=== PATIENT | male | born 1960 | race Caucasian/White ===

== ENCOUNTER 2019-04-23 04:49 | Emergency (ER) | payer BC ==
--- OUTSIDE RECORDS SUMMARY | 2019-04-23 04:52 | XMS REPORT | Clinical Summary ---
:1960 [facility] Address [address] [place] [address] Care Team Providers Name Role Phone Js Primary Care Provider Allergies No Known Allergies Medications Medication Sig Dispensed Refills Start Date End Date Status famotidine (PEPCID) 20 Take 20 mg by 0 Active MG tablet mouth 2 (two) times daily. nitroglycerin Put 1 pill 90 tablet 0 10/28/2017 10/28/2018 (NITROSTAT) 0.4 MG SL under tongue tablet every 5min as needed for chest pain.No more than 3 doses in 15min.. Active Problems Problem Noted Date NSTEMI (non-ST elevated myocardial infarction) 10/26/2017 Family History Relation Name Status Comments Father Alive Mother Alive Sister Alive Social History Tobacco Use Types Packs/Day Years Used Date Never Smoker Smokeless Tobacco: Never Used Alcohol Use Drinks/Week oz/Week Comments No Sex Assigned at Date Recorded Not on file Job Start Date Occupation Industry Not on file Not on file Not on file Travel History Travel Start Travel End No recent travel history available. Last Filed Vital Signs Not on file Plan of Treatment Not on file Implants Implanted Type Area Collection Clerk Device Shelf Model / Identifier Expiration Serial / Date Lot Synergy Cardiovascular N/A: HAWTHORNE [id number] 05/14/2018 [id number] / Implanted: Qty: 1 on 10/27/2017 by Osvaldo Cerna MD Heart SCIENTIFIC / [id number] [employer] Cardiovascular N/A: HAWTHORNE [id number] 04/26/2018 [id number] / Implanted: Qty: 1 on 10/27/2017 by Osvaldo Cerna MD Heart [employer]ENT[employer] / [id number] Device Clsr Angio-Seal Vip 6fr [id number] - [id number] Cardiovascular Right: [facility] MARY 08/25/2018 [id number] / Implanted: Qty: 1 on 10/27/2017 by Osvaldo Cerna MD [employer] MED:CARDIAC / SURG [id number] Results Not on fileafter 04/22/2018 Insurance Payer Benefit Plan / Subscriber ID Type Phone Address Group BLUE CROSS/BLUE BCBS PPO POS EPO xxxxxxxxxxxx PPO [phone] [address] [place] [address] Advance Directives For more information, please contact:[address] [phone] Code Status Date Activated Date Inactivated Comments Full Code 10/26/2017 10:52 AM 10/29/2017 12:40 AM This code status was determined by: Patient
--- OUTSIDE RECORDS SUMMARY | 2019-04-23 04:52 | XMS REPORT ---
:1960 [facility] Address [address] [place] [address] Dr. Hendricks [address] [place] [id number] Care Team Providers Name Role Phone OLGA CAZARES Unavailable Unavailable Problems This patient has no known problems. Allergies, Adverse Reactions, Alerts This patient has no known allergies or adverse reactions. Medications This patient has no known medications. Results Test Description Test Time Test Comments Text Results Atomic Results Result Comments BASIC METABOLIC PANEL 2017-10-28 06:47:00 Test Item Value Reference Range Comments SODIUM (BEAKER) (test 139 meq/L 136-145 sntw=115) POTASSIUM (BEAKER) (test 3.9 meq/L 3.5-5.1 kxth=037) CHLORIDE (BEAKER) (test 106 meq/L 98-107 gqgq=204) CO2 (BEAKER) (test 24 meq/L 22-29 uipb=812) BLOOD UREA NITROGEN 14 mg/dL 7-21 (BEAKER) (test zksc=805) CREATININE (BEAKER) (test 0.79 mg/dL 0.57-1.25 oszz=510) GLUCOSE RANDOM (BEAKER) 85 mg/dL 70-105 (test frpt=797) CALCIUM (BEAKER) (test 8.6 mg/dL 8.4-10.2 gwqp=981) EGFR (BEAKER) (test 101 mL/min/1.73 sq m ESTIMATED GFR IS NOT jqpi=0311) ACCURATE CREATININE CLEARANCE IN PREDICTING GLOMERULAR FILTRATION RATE. ESTIMATED GFR IS NOT APPLICABLE FOR DIALYSIS PATIENTS. CBC W/PLT COUNT & AUTO [id number] 05:53:00 Test Item Value Reference Range Comments WHITE BLOOD CELL COUNT (BEAKER) (test ncon=950) 7.4 K/ L 3.5-10.5 RED BLOOD CELL COUNT (BEAKER) (test wrmy=178) 5.00 M/ L 4.63-6.08 HEMOGLOBIN (BEAKER) (test tkri=950) 15.1 GM/DL 13.7-17.5 HEMATOCRIT (BEAKER) (test pqmc=154) 44.5 % 40.1-51.0 MEAN CORPUSCULAR VOLUME (BEAKER) (test geia=895) 89.0 fL 79.0-92.2 MEAN CORPUSCULAR HEMOGLOBIN (BEAKER) (test 30.2 pg 25.7-32.2 cswd=689) MEAN CORPUSCULAR HEMOGLOBIN CONC (BEAKER) (test 33.9 GM/DL 32.3-36.5 fvfy=238) RED CELL DISTRIBUTION WIDTH (BEAKER) (test 12.6 % 11.6-14.4 zrgx=048) PLATELET COUNT (BEAKER) (test yjjc=213) 208 K/CU MM 150-450 MEAN PLATELET VOLUME (BEAKER) (test pxju=903) 10.2 fL 9.4-12.4 NUCLEATED RED BLOOD CELLS (BEAKER) (test 0 /100 WBC 0-0 iysr=237) NEUTROPHILS RELATIVE PERCENT (BEAKER) (test 70 % gako=538) LYMPHOCYTES RELATIVE PERCENT (BEAKER) (test 21 % jwbn=875) MONOCYTES RELATIVE PERCENT (BEAKER) (test 8 % sucr=847) EOSINOPHILS RELATIVE PERCENT (BEAKER) (test 1 % zfns=653) BASOPHILS RELATIVE PERCENT (BEAKER) (test 1 % ywcq=563) NEUTROPHILS ABSOLUTE COUNT (BEAKER) (test 5.23 K/ L 1.78-5.38 adyx=387) LYMPHOCYTES ABSOLUTE COUNT (BEAKER) (test 1.52 K/ L 1.32-3.57 lgzm=500) MONOCYTES ABSOLUTE COUNT (BEAKER) (test 0.57 K/ L 0.30-0.82 eggy=766) EOSINOPHILS ABSOLUTE COUNT (BEAKER) (test 0.05 K/ L 0.04-0.54 vbfg=709) BASOPHILS ABSOLUTE COUNT (BEAKER) (test 0.04 K/ L 0.01-0.08 cbpd=152) IMMATURE GRANULOCYTES-RELATIVE PERCENT (BEAKER) 0 % 0-1 (test nagm=1602) CBC (HEMOGRAM ONLY)2017-10-27 20:50:00 Test Item Value Reference Range Comments WHITE BLOOD CELL COUNT (BEAKER) (test lsyg=654) 6.3 K/ L 3.5-10.5 RED BLOOD CELL COUNT (BEAKER) (test ycst=187) 4.87 M/ L 4.63-6.08 HEMOGLOBIN (BEAKER) (test opfx=403) 14.9 GM/DL 13.7-17.5 HEMATOCRIT (BEAKER) (test pyqd=380) 43.7 % 40.1-51.0 MEAN CORPUSCULAR VOLUME (BEAKER) (test arui=115) 89.7 fL 79.0-92.2 MEAN CORPUSCULAR HEMOGLOBIN (BEAKER) (test 30.6 pg 25.7-32.2 vpzk=479) MEAN CORPUSCULAR HEMOGLOBIN CONC (BEAKER) (test 34.1 GM/DL 32.3-36.5 hmpy=202) RED CELL DISTRIBUTION WIDTH (BEAKER) (test 12.4 % 11.6-14.4 frmq=952) PLATELET COUNT (BEAKER) (test dcea=656) 207 K/CU MM 150-450 MEAN PLATELET VOLUME (BEAKER) (test npnn=892) 9.9 fL 9.4-12.4 NUCLEATED RED BLOOD CELLS (BEAKER) (test 0 /100 WBC 0-0 drwj=034) [id number] 16:29:00 Test Item Value Reference Range Comments ACTIVATED CLOTTING TIME 301 sec TESTED AT [address] (BEAKER) (test nbft=684) [place] [address] [id number] 16:02:00 Test Item Value Reference Range Comments ACTIVATED CLOTTING TIME 263 sec TESTED AT [address] (BEAKER) (test pwqs=354) [place] [address] [id number] 10:05:00 Test Item Value Reference Range Comments PARTIAL THROMBOPLASTIN TIME (BEAKER) (test 64.8 seconds 22.5-36.0 boua=741) BASIC METABOLIC [id number] 04:48:00 Test Item Value Reference Range Comments SODIUM (BEAKER) (test 140 meq/L 136-145 wtka=919) POTASSIUM (BEAKER) (test 4.0 meq/L 3.5-5.1 sdtu=131) CHLORIDE (BEAKER) (test 106 meq/L 98-107 seic=989) CO2 (BEAKER) (test 27 meq/L 22-29 fmvk=462) BLOOD UREA NITROGEN 15 mg/dL 7-21 (BEAKER) (test inrg=435) CREATININE (BEAKER) (test 1.15 mg/dL 0.57-1.25 lipx=224) GLUCOSE RANDOM (BEAKER) 98 mg/dL 70-105 (test cuvp=145) CALCIUM (BEAKER) (test 9.1 mg/dL 8.4-10.2 rncd=134) EGFR (BEAKER) (test 66 mL/min/1.73 sq m ESTIMATED GFR IS NOT roae=7314) ACCURATE CREATININE CLEARANCE IN PREDICTING GLOMERULAR FILTRATION RATE. ESTIMATED GFR IS NOT APPLICABLE FOR DIALYSIS PATIENTS. CBC W/PLT COUNT & AUTO [id number] 04:06:00 Test Item Value Reference Range Comments WHITE BLOOD CELL COUNT (BEAKER) (test tlga=189) 7.0 K/ L 3.5-10.5 RED BLOOD CELL COUNT (BEAKER) (test ysoc=237) 4.86 M/ L 4.63-6.08 HEMOGLOBIN (BEAKER) (test pomg=911) 14.6 GM/DL 13.7-17.5 HEMATOCRIT (BEAKER) (test xixb=163) 44.0 % 40.1-51.0 MEAN CORPUSCULAR VOLUME (BEAKER) (test uxrd=292) 90.5 fL 79.0-92.2 MEAN CORPUSCULAR HEMOGLOBIN (BEAKER) (test 30.0 pg 25.7-32.2 iahd=836) MEAN CORPUSCULAR HEMOGLOBIN CONC (BEAKER) (test 33.2 GM/DL 32.3-36.5 nygg=614) RED CELL DISTRIBUTION WIDTH (BEAKER) (test 12.7 % 11.6-14.4 vqhu=664) PLATELET COUNT (BEAKER) (test calz=946) 209 K/CU MM 150-450 MEAN PLATELET VOLUME (BEAKER) (test tvia=445) 10.1 fL 9.4-12.4 NUCLEATED RED BLOOD CELLS (BEAKER) (test 0 /100 WBC 0-0 almu=833) NEUTROPHILS RELATIVE PERCENT (BEAKER) (test 54 % mspw=035) LYMPHOCYTES RELATIVE PERCENT (BEAKER) (test 35 % lpdo=937) MONOCYTES RELATIVE PERCENT (BEAKER) (test 8 % vgsa=465) EOSINOPHILS RELATIVE PERCENT (BEAKER) (test 1 % uads=584) BASOPHILS RELATIVE PERCENT (BEAKER) (test 1 % datp=339) NEUTROPHILS ABSOLUTE COUNT (BEAKER) (test 3.79 K/ L 1.78-5.38 cvtu=947) LYMPHOCYTES ABSOLUTE COUNT (BEAKER) (test 2.47 K/ L 1.32-3.57 tahk=267) MONOCYTES ABSOLUTE COUNT (BEAKER) (test 0.59 K/ L 0.30-0.82 dhlr=479) EOSINOPHILS ABSOLUTE COUNT (BEAKER) (test 0.07 K/ L 0.04-0.54 ebdm=272) BASOPHILS ABSOLUTE COUNT (BEAKER) (test 0.06 K/ L 0.01-0.08 znwc=814) IMMATURE GRANULOCYTES-RELATIVE PERCENT (BEAKER) 0 % 0-1 (test chiw=8478) [id number] 01:41:00 Test Item Value Reference Range Comments PROTIME (BEAKER) (test niis=731) 14.0 seconds 11.7-14.7 INR (BEAKER) (test gclp=416) 1.1 <=5.9 PARTIAL THROMBOPLASTIN TIME (BEAKER) (test 54.4 seconds 22.5-36.0 zwzr=001) RECOMMENDED COUMADIN/WARFARIN INR THERAPY RANGESSTANDARD DOSE: 2.0 - 3.0 Includes: PROPHYLAXIS forvenous thrombosis, systemic embolization; TREATMENT for venous thrombosis and/or pulmonary embolus.HIGH RISK: Target INR is 2.5-3.5 for patients with mechanical heart valves.TROPONIN [id number] 01:31:00 Test Item Value Reference Range Comments TROPONIN I (BEAKER) (test sdzm=126) 0.29 ng/mL 0.00-0.03 Troponin I (TnI) levels must be interpreted in the context of the presenting symptoms and the clinical findings. Elevated TnI levels indicate myocardial damage, but are not specific for ischemic heart disease. Elevated TnI levels are seen in patients with other cardiac conditions (including myocarditis and congestive heart failure), and slight TnI elevations occur in patients with other conditions, including sepsis, renal failure, acidosis, acute neurological disease, and persistent tachyarrhythmia.TROPONIN [id number] 19:05:00 Test Item Value Reference Range Comments TROPONIN I (BEAKER) (test ckcw=303) 0.40 ng/mL 0.00-0.03 Troponin I (TnI) levels must be interpreted in the context of the presenting symptoms and the clinical findings. Elevated TnI levels indicate myocardial damage, but are not specific for ischemic heart disease. Elevated TnI levels are seen in patients with other cardiac conditions (including myocarditis and congestive heart failure), and slight TnI elevations occur in patients with other conditions, including sepsis, renal failure, acidosis, acute neurological disease, and persistent tachyarrhythmia.[id number] 18:35:00 Test Item Value Reference Range Comments PARTIAL THROMBOPLASTIN TIME (BEAKER) (test 40.3 seconds 22.5-36.0 nmmo=390) TROPONIN [id number] 13:51:00 Test Item Value Reference Range Comments TROPONIN I (BEAKER) (test szxt=233) 0.29 ng/mL 0.00-0.03 Troponin I (TnI) levels must be interpreted in the context of the presenting symptoms and the clinical findings. Elevated TnI levels indicate myocardial damage, but are not specific for ischemic heart disease. Elevated TnI levels are seen in patients with other cardiac conditions (including myocarditis and congestive heart failure), and slight TnI elevations occur in patients with other conditions, including sepsis, renal failure, acidosis, acute neurological disease, and persistent tachyarrhythmia.CREATINE KINASE (CK), TOTAL AND [id number] 12:22:00 Test Item Value Reference Range Comments CREATINE KINASE TOTAL (BEAKER) (test kzug=405) 113 U/L 29-200 CREATINE KINASE-MB (BEAKER) (test nulb=518) 2.9 ng/mL 0.0-6.6 CREATINE KINASE-MB INDEX (BEAKER) (test wcdc=283) 2.6 % CK-MB Reference Range:<6.7 Normal6.7-10.0 Borderline>10.0 AbnormalCOMPREHENSIVE METABOLIC [id number] 12:16:00 Test Item Value Reference Range Comments TOTAL PROTEIN (BEAKER) 7.0 gm/dL 6.0-8.3 Specimen slightly (test rbhb=262) hemolyzed ALBUMIN (BEAKER) (test 3.8 g/dL 3.5-5.0 Specimen slightly idvu=9137) hemolyzed ALKALINE PHOSPHATASE 58 U/L 40-150 (BEAKER) (test bjml=450) BILIRUBIN TOTAL (BEAKER) 0.6 mg/dL 0.2-1.2 Specimen slightly (test yvod=119) hemolyzed SODIUM (BEAKER) (test 140 meq/L 136-145 ailt=693) POTASSIUM (BEAKER) (test 4.4 meq/L 3.5-5.1 Specimen slightly ibzc=601) hemolyzed CHLORIDE (BEAKER) (test 106 meq/L 98-107 hwrb=438) CO2 (BEAKER) (test 27 meq/L 22-29 xbyf=354) BLOOD UREA NITROGEN 12 mg/dL 7-21 (BEAKER) (test fmqg=855) CREATININE (BEAKER) (test 1.00 mg/dL 0.57-1.25 Specimen slightly jooa=185) hemolyzed GLUCOSE RANDOM (BEAKER) 104 mg/dL 70-105 (test bizg=220) CALCIUM (BEAKER) (test 9.7 mg/dL 8.4-10.2 aylr=588) AST (SGOT) (BEAKER) (test 21 U/L 5-34 Specimen slightly gyys=488) hemolyzed ALT (SGPT) (BEAKER) (test 22 U/L 6-55 Specimen slightly ybct=761) hemolyzed EGFR (BEAKER) (test 77 mL/min/1.73 sq m ESTIMATED GFR IS NOT tngs=0418) ACCURATE CREATININE CLEARANCE IN PREDICTING GLOMERULAR FILTRATION RATE. ESTIMATED GFR IS NOT APPLICABLE FOR DIALYSIS PATIENTS. LIPID [id number] 12:16:00 Test Item Value Reference Range Comments TRIGLYCERIDES (BEAKER) (test 103 mg/dL Specimen slightly hemolyzed bllp=249) CHOLESTEROL (BEAKER) (test 243 mg/dL Specimen slightly hemolyzed uurl=545) HDL CHOLESTEROL (BEAKER) (test 36 mg/dL epmc=822) LDL CHOLESTEROL CALCULATED 186 mg/dL (BEAKER) (test tviv=012) Triglyceride Reference Range: Low Risk <150 Borderline 150- 199 High Risk 200-499 Very High Risk >=500Cholesterol Reference Range: Low Risk <200 Borderline 200-239 High Risk > 240HDL Cholesterol Reference Range: Low Risk >=60 High Risk <40LDL Cholesterol Reference Range: Optimal <100 Near Optimal 100-129 Borderline 130-159 High 160-189 Very High >=190PT/[id number] 11:44:00 Test Item Value Reference Range Comments PROTIME (BEAKER) (test fuvb=025) 13.8 seconds 11.7-14.7 INR (BEAKER) (test izfr=922) 1.1 <=5.9 PARTIAL THROMBOPLASTIN TIME (BEAKER) (test 36.6 seconds 22.5-36.0 mdww=421) RECOMMENDED COUMADIN/WARFARIN INR THERAPY RANGESSTANDARD DOSE: 2.0 - 3.0 Includes: PROPHYLAXIS forvenous thrombosis, systemic embolization; TREATMENT for venous thrombosis and/or pulmonary embolus.HIGH RISK: Target INR is 2.5-3.5 for patients with mechanical heart valves.Prior to initiating heparinPrior to initiating heparinCBC W/PLT COUNT & AUTO [id number] 11:37:00 Test Item Value Reference Range Comments WHITE BLOOD CELL COUNT (BEAKER) (test bzwa=640) 5.7 K/ L 3.5-10.5 RED BLOOD CELL COUNT (BEAKER) (test ydft=575) 5.12 M/ L 4.63-6.08 HEMOGLOBIN (BEAKER) (test apot=196) 15.8 GM/DL 13.7-17.5 HEMATOCRIT (BEAKER) (test nuha=307) 46.2 % 40.1-51.0 MEAN CORPUSCULAR VOLUME (BEAKER) (test uamt=330) 90.2 fL 79.0-92.2 MEAN CORPUSCULAR HEMOGLOBIN (BEAKER) (test 30.9 pg 25.7-32.2 wwwv=105) MEAN CORPUSCULAR HEMOGLOBIN CONC (BEAKER) (test 34.2 GM/DL 32.3-36.5 zxnu=580) RED CELL DISTRIBUTION WIDTH (BEAKER) (test 12.7 % 11.6-14.4 tqbr=878) PLATELET COUNT (BEAKER) (test ltvl=845) 232 K/CU MM 150-450 MEAN PLATELET VOLUME (BEAKER) (test swur=920) 9.9 fL 9.4-12.4 NUCLEATED RED BLOOD CELLS (BEAKER) (test 0 /100 WBC 0-0 btjx=052) NEUTROPHILS RELATIVE PERCENT (BEAKER) (test 63 % glyu=241) LYMPHOCYTES RELATIVE PERCENT (BEAKER) (test 30 % tmrv=410) MONOCYTES RELATIVE PERCENT (BEAKER) (test 7 % heds=158) EOSINOPHILS RELATIVE PERCENT (BEAKER) (test 0 % gnrj=682) BASOPHILS RELATIVE PERCENT (BEAKER) (test 1 % ggee=917) NEUTROPHILS ABSOLUTE COUNT (BEAKER) (test 3.59 K/ L 1.78-5.38 zpni=131) LYMPHOCYTES ABSOLUTE COUNT (BEAKER) (test 1.69 K/ L 1.32-3.57 nlde=681) MONOCYTES ABSOLUTE COUNT (BEAKER) (test 0.37 K/ L 0.30-0.82 fsfr=667) EOSINOPHILS ABSOLUTE COUNT (BEAKER) (test 0.02 K/ L 0.04-0.54 lbzd=740) BASOPHILS ABSOLUTE COUNT (BEAKER) (test 0.05 K/ L 0.01-0.08 ctwf=061) IMMATURE GRANULOCYTES-RELATIVE PERCENT (BEAKER) 0 % 0-1 (test wnar=6854) RAD, CHEST, 1 VIEW, NON [id number] 11:23:00Post-intubationReason for exam:-& gt;NSTEMI, chest painShould this be performed at the bedside?->YesFINAL REPORT Chest one view Discussion: Heart, lungs, bones, soft tissues unremarkable. No effusion or pneumothorax. Signed: Angelo Fish Verified Date/Time: 10/26/201711:23:17 Reading Location: [address] Reading Room
[2019-04-23] MEDS ORDERED: FENTANYL CITR 100 MCG/2 ML ONE (05:00)
[2019-04-23] MEDS ORDERED: ONDANSETRON 4 MG/2 ML VIAL ONE (05:01)
[2019-04-23] MEDS ORDERED: KETOROLAC 30 MG/ML INJ ONE (05:01)
[2019-04-23 05:14] LABS: Absolute Lymphocytes (CBC) 3.9 K/uL (0.7-4.9); Basophils % 1.3 % (0-1.3); Hematocrit 46.1 % (39.6-49.0); Lymphocytes % 38.7 % (15.3-44.8); MPV 9.2 fL (7.6-11.3); RBC Red Blood Cell Count 4.99 M/uL (4.33-5.43)
[2019-04-23] MEDS ORDERED: HYDROMORPHONE HCL 1 MG/ML INJ ONE (05:31)
[2019-04-23 05:33] LABS: Albumin 3.8 g/dL (3.4-5.0); Bilirubin Direct 0.1 mg/dL (0-0.2); Bilirubin Total 0.4 mg/dL (0.2-1.0); Potassium 3.8 mmol/L (3.5-5.1); Protein, Total 7.4 g/dL (6.4-8.2)
--- NOTE | 2019-04-23 06:45 | ER ---
Nurse's Notes [facility] Name: Ramirez Gould Jr Age: 58 yrs Sex: Male : 1960 Arrival Date: 04/23/2019 Time: 04:51 Bed 16 Private MD: Diagnosis: Right ureterolithiasis with hydronephrosis Presentation: 04/23 04:53 Presenting complaint: Patient states: that he started to urinate blood last night and fc then at 0430 this am started to have severe right sided flank pain. hx of kidney stones. Transition of care: patient was not received from another setting of care. Onset of symptoms was April 23, 2019 at 04:30. Risk Assessment: Do you want to hurt yourself or someone else? Patient reports no desire to harm self or others. Initial Sepsis Screen: Does the patient meet any 2 criteria? No. Patient's initial sepsis screen is negative. Does the patient have a suspected source of infection? No. Patient's initial sepsis screen is negative. Care prior to arrival: None. 04:53 Method Of Arrival: Wheelchair 04:53 Acuity: JOHN 3 fc Historical: - Allergies: 05:05 No Known Allergies; fc - Home Meds: 05:05 BRILINTA 90 mg oral tab 1 tab 2 times per day [Active]; metoprolol tartrate 25 mg Oral fc tab 0.5 tab 2 times per day [Active]; - PMHx: 05:05 GERD; Hypertension; Myocardial infarction; fc - PSHx: 05:05 Cholecystectomy; Heart stents; fc - Immunization history:: Last tetanus immunization: up to date. - Social history:: Smoking status: Patient/guardian denies using tobacco, Patient uses alcohol, occasionally. - Ebola Screening: : Patient negative for fever greater than or equal to 101.5 degrees Fahrenheit, and additional compatible Ebola Virus Disease symptoms Patient denies exposure to infectious person Patient denies travel to an Ebola-affected area in the 21 days before illness onset. - Family history:: not pertinent. - Hospitalizations: : No recent hospitalization is reported. Screenin:53 Abuse screen: Denies threats or abuse. Nutritional screening: No deficits noted. fc Tuberculosis screening: No symptoms or risk factors identified. Fall Risk None identified. Assessment: 05:00 General: Appears distressed, uncomfortable, Behavior is appropriate for age, agitated, jb4 anxious, restless. Pain: Complains of pain in right low back Pain radiates to groin Pain currently is 10 out of 10 on a pain scale. Quality of pain is described as stabbing, Pain began 1 hour ago. Is continuous. Neuro: Level of Consciousness is awake, alert, obeys commands, Oriented to person, place, time, situation. Cardiovascular: skin warm and diaphoretic . Respiratory: Airway is patent Respiratory effort is even, unlabored, Respiratory pattern is regular, symmetrical. GI: Abdomen is round non-distended, Reports nausea. : Reports discharge, bloody, pain in right flank(s), testicle. EENT: No signs and/or symptoms were reported regarding the EENT system. Derm: Skin is intact, Skin is diaphoretic, Skin is normal, Skin temperature is warm. Musculoskeletal: Circulation, motion, and sensation intact. Range of motion: intact in all extremities. 05:55 Reassessment: Patient appears in no apparent distress at this time. Patient and/or jb4 family updated on plan of care and expected duration. Pain level reassessed. Patient is alert, oriented x 3, equal unlabored respirations, skin warm/dry/pink. Patient states feeling better. 06:29 Reassessment: Patient appears in no apparent distress at this time. Patient and/or jb4 family updated on plan of care and expected duration. Pain level reassessed. Patient is alert, oriented x 3, equal unlabored respirations, skin warm/dry/pink. Patient states feeling better. 07:21 Reassessment: Patient appears in no apparent distress at this time. Patient and/or jb4 family updated on plan of care and expected duration. Pain level reassessed. Patient is alert, oriented x 3, equal unlabored respirations, skin warm/dry/pink. Pt and family verbalized understanding of d/c and follow up instructions. Assisted to car via wheelchair. Vital Signs: 04:53 BP 89 / 56; Pulse 77; Resp 18; Pulse Ox 99% ; Weight 107.95 kg (R); Height 5 ft. 10 in. fc (177.80 cm) (R); Pain 10/10; 05:00 BP 109 / 70; jb4 05:30 BP 120 / 81; Pulse 51; Resp 16; Temp 98.6(O); Pulse Ox 99% on R/A; jb4 06:30 BP 108 / 74; Pulse 61; Resp 16; Pulse Ox 99% on R/A; jb4 07:21 BP 116 / 63; Pulse 61; Resp 16; Pulse Ox 99% on R/A; jb4 04:53 Body Mass Index 34.15 (107.95 kg, 177.80 cm) ED Course: 04:51 Patient arrived in ED. ds1 04:53 Arm band placed on Patient placed in an exam room, on a stretcher. fc 04:53 Patient has correct armband on for positive identification. Placed in gown. Bed in low fc position. Call light in reach. Side rails up X2. Pulse ox on. NIBP on. 04:53 No provider procedures requiring assistance completed. fc 04:56 Miguel Ayers MD is Attending Physician. wa 05:00 Initial lab(s) drawn, by me, sent to lab. Inserted saline lock: 20 gauge in left hand, jb4 using aseptic technique. Blood collected. 05:02 Triage completed. 05:08 Gio Mcnamara RN is Primary Nurse. jb4 05:40 CT completed. Patient tolerated procedure well. Patient moved to CT via stretcher. eh Patient moved back from CT. 05:45 Stone Protocol In Process Unspecified. EDMS 06:43 Sanam Fitch MD is Referral Physician. wa 07:21 IV discontinued, intact, bleeding controlled, No redness/swelling at site. Pressure jb4 dressing applied. Administered Medications: 05:03 Drug: Zofran 4 mg Route: IVP; Site: left hand; jb4 05:30 Follow up: Response: No adverse reaction; Nausea is decreased jb4 05:05 Drug: fentaNYL (PF) 50 mcg Route: IVP; Site: left hand; jb4 05:30 Follow up: Response: No adverse reaction; Pain is unchanged, physician notified; RASS: jb4 Restless (+1) 05:06 Drug: TORadol 30 mg Route: IVP; Site: left hand; jb4 05:30 Follow up: Response: No adverse reaction; Pain is unchanged, physician notified jb4 05:38 Drug: Dilaudid 1 mg {Note: Rass score of 1, b/p 120/81.} Route: IVP; Site: left hand; jb4 06:00 Follow up: Response: No adverse reaction; Pain is decreased; RASS: Alert and Calm (0) jb4 Outcome: 06:44 Discharge ordered by MD. borrego 07:21 Discharged to home via wheelchair, with family. jb4 07:21 Condition: stable 07:21 Discharge instructions given to patient, family, Instructed on discharge instructions, follow up and referral plans. medication usage, Demonstrated understanding of instructions, follow-up care, medications, Prescriptions given X 4. 07:23 Patient left the ED. jb4 Signatures: Dispatcher [employer] EDMS Eric Pradhan Felicia, RN RN Lilly Stewart ds1 Gio Mcnamara RN RN jb4 Miguel Ayers MD MD wa Corrections: (The following items were deleted from the chart) 05:19 05:00 Cardiovascular: Patient's skin is warm and dry. jb4 jb4 05:19 05:00 Derm: Skin is intact, Skin is pink, warm \T\ dry. jb4 [facility] 05:31 04:53 Pulse 77bpm; Resp 18bpm; Pulse Ox 99%; 107.95 kg Reported; Height 5 ft. 10 in. fc Reported; BMI: 34.1; Pain 10/10; fc 06:34 06:34 Response: No adverse reaction; Pain is unchanged, physician notified; RASS: jb4 Restless (+1) jb4
--- NOTE | 2019-04-23 06:45 | EDPHYS ---
Physician Documentation [facility] Name: Ramirez Gould Jr Age: 58 yrs Sex: Male : 1960 Arrival Date: 04/23/2019 Time: 04:51 Bed 16 Private MD: ED Physician Miguel Ayers HPI: 04/23 05:20 This 58 yrs old Male presents to ER via Wheelchair with complaints of wa Possible Kidney Stone. 05:20 The patient complains of pain in the right flank. The pain radiates to the groin. wa Onset: The symptoms/episode began/occurred 2 hour(s) ago. Modifying factors: The symptoms are alleviated by nothing. the symptoms are aggravated by nothing. Associated signs and symptoms: Pertinent positives: hematuria, Pertinent negatives: diarrhea, dizziness, dysuria, fever, vomiting. Severity of pain: At its worst the pain was severe in the emergency department the pain is unchanged. The patient has experienced a previous episode, h/o kidney stones. The patient has not recently seen a physician. states noted blood in his urine several hours ago. now 2 hours of severe R flank pain. Historical: - Allergies: 05:05 No Known Allergies; fc - Home Meds: 05:05 BRILINTA 90 mg oral tab 1 tab 2 times per day [Active]; metoprolol tartrate 25 mg Oral fc tab 0.5 tab 2 times per day [Active]; - PMHx: 05:05 GERD; Hypertension; Myocardial infarction; fc - PSHx: 05:05 Cholecystectomy; Heart stents; fc - Immunization history:: Last tetanus immunization: up to date. - Social history:: Smoking status: Patient/guardian denies using tobacco, Patient uses alcohol, occasionally. - Ebola Screening: : Patient negative for fever greater than or equal to 101.5 degrees Fahrenheit, and additional compatible Ebola Virus Disease symptoms Patient denies exposure to infectious person Patient denies travel to an Ebola-affected area in the 21 days before illness onset. - Family history:: not pertinent. - Hospitalizations: : No recent hospitalization is reported. ROS: 05:22 Constitutional: Negative for fever, chills, and weight loss, Eyes: Negative for injury, wa pain, redness, and discharge, ENT: Negative for injury, pain, and discharge, Neck: Negative for injury, pain, and swelling, Cardiovascular: Negative for chest pain, palpitations, and edema, Respiratory: Negative for shortness of breath, cough, wheezing, and pleuritic chest pain, MS/Extremity: Negative for injury and deformity, Skin: Negative for injury, rash, and discoloration, Neuro: Negative for headache, weakness, numbness, tingling, and seizure, Psych: Negative for depression, anxiety, suicide ideation, homicidal ideation, and hallucinations. 05:22 Abdomen/GI: Positive for abdominal pain, nausea, of the right flank. 05:22 Back: Positive for flank pain, on the right. 05:22 : Positive for hematuria, Negative for urinary frequency. 05:22 All other systems are negative. Exam: 05:23 Head/Face: Normocephalic, atraumatic. Eyes: Pupils equal round and reactive to light, wa extra-ocular motions intact. Lids and lashes normal. Conjunctiva and sclera are non-icteric and not injected. Cornea within normal limits. Periorbital areas with no swelling, redness, or edema. ENT: Nares patent. No nasal discharge, no septal abnormalities noted. Tympanic membranes are normal and external auditory canals are clear. Oropharynx with no redness, swelling, or masses, exudates, or evidence of obstruction, uvula midline. Mucous membranes moist. Neck: Trachea midline, no thyromegaly or masses palpated, and no cervical lymphadenopathy. Supple, full range of motion without nuchal rigidity, or vertebral point tenderness. No Meningismus. Chest/axilla: Normal chest wall appearance and motion. Nontender with no deformity. No lesions are appreciated. Cardiovascular: Regular rate and rhythm with a normal S1 and S2. No gallops, murmurs, or rubs. Normal PMI, no JVD. No pulse deficits. Respiratory: Lungs have equal breath sounds bilaterally, clear to auscultation and percussion. No rales, rhonchi or wheezes noted. No increased work of breathing, no retractions or nasal flaring. Skin: Warm, dry with normal turgor. Normal color with no rashes, no lesions, and no evidence of cellulitis. MS/ Extremity: Pulses equal, no cyanosis. Neurovascular intact. Full, normal range of motion. Neuro: Awake and alert, GCS 15, oriented to person, place, time, and situation. Cranial nerves II-XII grossly intact. Motor strength 5/5 in all extremities. Sensory grossly intact. Cerebellar exam normal. Normal gait. Psych: Awake, alert, with orientation to person, place and time. Behavior, mood, and affect are within normal limits. 05:23 Constitutional: The patient appears in obvious distress, moderately distressed. 05:23 Abdomen/GI: Inspection: abdomen appears normal, Bowel sounds: normal, Palpation: abdomen is soft and non-tender. 05:23 Back: pain, is absent, ROM is normal, CVA tenderness, is absent. Vital Signs: 04:53 BP 89 / 56; Pulse 77; Resp 18; Pulse Ox 99% ; Weight 107.95 kg (R); Height 5 ft. 10 in. fc (177.80 cm) (R); Pain 10/10; 05:00 BP 109 / 70; jb4 05:30 BP 120 / 81; Pulse 51; Resp 16; Temp 98.6(O); Pulse Ox 99% on R/A; jb4 06:30 BP 108 / 74; Pulse 61; Resp 16; Pulse Ox 99% on R/A; jb4 07:21 BP 116 / 63; Pulse 61; Resp 16; Pulse Ox 99% on R/A; jb4 04:53 Body Mass Index 34.15 (107.95 kg, 177.80 cm) fc MDM: 04:56 Patient medically screened. ks 05:24 Differential diagnosis: nephrolithiasis, pyelonephritis, UTI, ruptured AAA, dissecting wa AAA. Data reviewed: vital signs, nurses notes. 06:41 Test interpretation: by ED physician or midlevel provider: labs wnl. UA pending. CT ks abd/pelvis noted for 2 mm R distal ureter stone with assoc hydro. Response to treatment: the patient's symptoms have markedly improved after treatment. ED course: pain-free at 0640 hrs. will await UA and dispo accordingly. 06:48 Test interpretation: by ED physician or midlevel provider: UA noted for blood and ks ketones. nml nitrite and LE. 04/23 05:00 Order name: Basic Metabolic Panel; Complete Time: 06:36 04/23 05:00 Order name: CBC with Diff; Complete Time: 05:25 04/23 05:00 Order name: Hepatic Function; Complete Time: 06:37 04/23 05:00 Order name: Lipase; Complete Time: 06:37 ks 04/23 05:00 Order name: Urine Microscopic Only ks 04/23 06:56 Order name: Urine Dipstick--Ancillary (enter results) 04/23 05:00 Order name: IV Saline Lock; Complete Time: 05:16 ks 04/23 05:00 Order name: Labs collected and sent; Complete Time: 05:26 ks 04/23 05:26 Order name: Stone Protocol EDTX 04/23 05:00 Order name: Urine Dipstick-Ancillary (obtain specimen); Complete Time: 06:48 ks Administered Medications: 05:03 Drug: Zofran 4 mg Route: IVP; Site: left hand; 4 05:30 Follow up: Response: No adverse reaction; Nausea is decreased jb4 05:05 Drug: fentaNYL (PF) 50 mcg Route: IVP; Site: left hand; jb4 05:30 Follow up: Response: No adverse reaction; Pain is unchanged, physician notified; RASS: banner Restless (+1) 05:06 Drug: TORadol 30 mg Route: IVP; Site: left hand; 4 05:30 Follow up: Response: No adverse reaction; Pain is unchanged, physician notified banner 05:38 Drug: Dilaudid 1 mg {Note: Rass score of 1, b/p 120/81.} Route: IVP; Site: left hand; banner 06:00 Follow up: Response: No adverse reaction; Pain is decreased; RASS: Alert and Calm (0) banner Disposition: 04/23/19 06:44 Discharged to Home. Impression: Right ureterolithiasis with hydronephrosis. - Condition is Stable. - Discharge Instructions: Kidney Stones, [id number]. - Prescriptions for Zofran 4 mg Oral Tablet - take 1 tablet by ORAL route every 12 hours As needed; 20 tablet. [place] 5- 325 mg Oral Tablet - take 1 tablet by ORAL route every 6 hours As needed; 20 tablet. Flomax 0.4 mg Oral Capsule, Sust. Release 24 hr - take 1 capsule by ORAL route once daily for 5 days 1/2 hour following the same meal each day; 5 capsule. - Medication Reconciliation Form, Thank You Letter, Antibiotic Education, Prescription Opioid Use, Work release form form. - Follow up: Sanam Fitch MD; When: 2 - 3 days; Reason: Re-evaluation by your physician. - Problem is new. - Symptoms have improved. - Notes: take medication as prescribed. do not stand too quickly when taking flomax as it could make you collapse down.Follow up with the urologist for any continued concerns such as severe pain Signatures: Dispatcher [employer] [facility] Heaven Porter RN RN Goi Mcnamara RN RN jb4 Miguel Ayers MD MD wa Corrections: (The following items were deleted from the chart) 05:25 05:01 Abdomen Pelvis Wo Con+CT.RAD.BRZ ordered. EDTX EDMS 07:23 06:44 04/23/2019 06:44 Discharged to Home. Impression: Right ureterolithiasis with jb4 hydronephrosis. Condition is Stable. Forms are Medication Reconciliation Form, Thank You Letter, Antibiotic Education, Prescription Opioid Use. Follow up: Sanam Fitch; When: 2 - 3 days; Reason: Re-evaluation by your physician. Problem is new. Symptoms have improved. wa
[2019-04-23 07:37] LABS: Urine Bacteria <20 /HPF (NONE SEEN); Urine RBC 20-50 /HPF (NONE SEEN)
[2019-04-23 07:38] LABS: Urine Amorphous Sediment 1+ /HPF (NONE SEEN); Urine Culture Reflex Order NOT NEEDED
[2019-04-23 09:35] LABS: Urine Blood 2+ (NEG); Urine Glucose NEGATIVE (NEG); Urine Protein NEGATIVE (NEG); Urine Specific Gravity 1.025 (1.005-1.030)
--- NOTE | 2019-04-23 10:29 | RAD REPORT ---
EXAM DESCRIPTION: Stone Protocol CLINICAL HISTORY: R flank pain COMPARISON: None. TECHNIQUE: CT ABDOMEN PELVIS WITHOUT IV CONTRAST on 04/23/2019 5:01 AM CDT This exam was performed according to our departmental dose-optimization program, which includes autom ated exposure control, adjustment of the mA and/or kV according to patient size and/or use of iterati ve reconstruction technique. FINDINGS: Lower lungs are clear. Abdomen: There is a small cyst in the right lobe of the liver. There is no biliary dilatation. Cholec ystectomy was performed. The pancreas and spleen are normal in appearance. There is a 2 mm mid pole l eft renal calculus. There is a 2 mm mid pole right renal calculus. There is mild right hydronephrosis secondary to a 2 mm distal right ureteral calculus. Abdominal aorta is normal in course and caliber without aneurysm. There is no free air. There is no r etroperitoneal adenopathy. Pelvis: There is no bowel obstruction. Urinary bladder is unremarkable. There is no free fluid. Appen [place] is normal. Skeleton: There are no acute osseous findings. No suspicious bony lesions. IMPRESSION: Mild bilateral nephrolithiasis with a mildly obstructing two distal right ureteral calcu gennaro. Electronically signed by: Kade Leonard MD 04/23/2019 5:53 AM CDT Due to temporary technical issues with the PACS/Fluency reporting system, reports are being signed by the in house radiologist as a courtesy to ensure prompt reporting. The interpreting radiologist is f ully responsible for the content of the report.
== END 2019-04-23 07:23 | disposition home or self-care (01) ==
LOC: ER 04:49
DX: N13.2 Hydronephrosis with renal and ureteral calculous obstruction (principal); I10 Essential (primary) hypertension; I25.2 Old myocardial infarction
CPT/HCPCS: 85025; 80048; 36415; 80076; 83690; 76377; 74176; 96375; 96374; 99284; J3010; J1170; J2405; 81003; 81015

== ENCOUNTER 2019-04-26 08:56 | Emergency (ER) | payer BC ==
--- OUTSIDE RECORDS SUMMARY | 2019-04-26 09:00 | XMS REPORT | Clinical Summary ---
:[address] [facility] Address [address] [place] [address] Care Team Providers Name Role Phone Js [...] Not on file Implants Implanted Type Area Small Products Ii Assembler Device Shelf Model / Identifier Expiration Serial / Date Lot Synergy Cardiovascular N/A: [place] [id number] 05/14/2018 [id number] / Implanted: Qty: 1 on 10/27/2017 by Osvaldo Cerna MD Heart [employer] / [id number] [employer] Cardiovascular N/A: [place] [id number] 04/26/2018 [id number] / Implanted: Qty: 1 on 10/27/2017 by Osvaldo Cerna MD [employer] / [id number] Device Clsr Angio-Seal Vip 6fr [id number] - [id number] Cardiovascular Right: [facility] [place] 08/25/2018 [id number] / Implanted: Qty: 1 on 10/27/2017 by Osvaldo Cerna MD Groin MED:CARDIAC / SURG [id number] Results Not on fileafter 04/25/2018 Insurance Payer Benefit Plan / Subscriber ID Type Phone Address Group BLUE CROSS/BLUE BCBS PPO POS EPO xxxxxxxxxxxx PPO [phone] [address] [place] [address] Advance Directives For more information, please contact:[address] [phone] Code Status Date Activated Date Inactivated Comments Full Code 10/26/2017 10:52 AM 10/29/2017 12:40 AM This code status was determined by: Patient
--- OUTSIDE RECORDS SUMMARY | 2019-04-26 09:00 | XMS REPORT ---
:1960 Author [facility] Address [address] [place] [address] Dr. Hendricks [address] [place] [id number] Care Team Providers Name Role Phone OLGA [...] Comments SODIUM (BEAKER) (test 139 meq/L 136-145 sbuv=187) POTASSIUM (BEAKER) (test 3.9 meq/L 3.5-5.1 knip=205) CHLORIDE (BEAKER) (test 106 meq/L 98-107 wenc=004) CO2 (BEAKER) (test 24 meq/L 22-29 lbgr=030) BLOOD UREA NITROGEN 14 mg/dL 7-21 (BEAKER) (test aztm=443) CREATININE (BEAKER) (test 0.79 mg/dL 0.57-1.25 szam=901) GLUCOSE RANDOM (BEAKER) 85 mg/dL 70-105 (test afdy=860) CALCIUM (BEAKER) (test 8.6 mg/dL 8.4-10.2 fdvt=426) EGFR (BEAKER) (test 101 mL/min/1.73 sq m ESTIMATED GFR IS NOT pmaf=7663) ACCURATE CREATININE CLEARANCE IN PREDICTING GLOMERULAR FILTRATION RATE. ESTIMATED GFR IS NOT APPLICABLE FOR DIALYSIS PATIENTS. CBC W/PLT COUNT & AUTO [id number] 05:53:00 Test Item Value Reference Range Comments WHITE BLOOD CELL COUNT (BEAKER) (test tfvd=505) 7.4 K/ L 3.5-10.5 RED BLOOD CELL COUNT (BEAKER) (test npuz=177) 5.00 M/ L 4.63-6.08 HEMOGLOBIN (BEAKER) (test poij=929) 15.1 GM/DL 13.7-17.5 HEMATOCRIT (BEAKER) (test frzj=238) 44.5 % 40.1-51.0 MEAN CORPUSCULAR VOLUME (BEAKER) (test ainw=028) 89.0 fL 79.0-92.2 MEAN CORPUSCULAR HEMOGLOBIN (BEAKER) (test 30.2 pg 25.7-32.2 fztx=017) MEAN CORPUSCULAR HEMOGLOBIN CONC (BEAKER) (test 33.9 GM/DL 32.3-36.5 ljlb=862) RED CELL DISTRIBUTION WIDTH (BEAKER) (test 12.6 % 11.6-14.4 lcgk=583) PLATELET COUNT (BEAKER) (test xxyy=731) 208 K/CU MM 150-450 MEAN PLATELET VOLUME (BEAKER) (test uqzi=658) 10.2 fL 9.4-12.4 NUCLEATED RED BLOOD CELLS (BEAKER) (test 0 /100 WBC 0-0 olnm=137) NEUTROPHILS RELATIVE PERCENT (BEAKER) (test 70 % iury=852) LYMPHOCYTES RELATIVE PERCENT (BEAKER) (test 21 % iwqa=869) MONOCYTES RELATIVE PERCENT (BEAKER) (test 8 % hiuk=552) EOSINOPHILS RELATIVE PERCENT (BEAKER) (test 1 % lpim=982) BASOPHILS RELATIVE PERCENT (BEAKER) (test 1 % dwwf=008) NEUTROPHILS ABSOLUTE COUNT (BEAKER) (test 5.23 K/ L 1.78-5.38 xnba=586) LYMPHOCYTES ABSOLUTE COUNT (BEAKER) (test 1.52 K/ L 1.32-3.57 siwh=091) MONOCYTES ABSOLUTE COUNT (BEAKER) (test 0.57 K/ L 0.30-0.82 amqf=732) EOSINOPHILS ABSOLUTE COUNT (BEAKER) (test 0.05 K/ L 0.04-0.54 hzvn=644) BASOPHILS ABSOLUTE COUNT (BEAKER) (test 0.04 K/ L 0.01-0.08 qram=737) IMMATURE GRANULOCYTES-RELATIVE PERCENT (BEAKER) 0 % 0-1 (test ttnd=0487) CBC (HEMOGRAM ONLY)2017-10-27 20:50:00 Test Item Value Reference Range Comments WHITE BLOOD CELL COUNT (BEAKER) (test zoke=851) 6.3 K/ L 3.5-10.5 RED BLOOD CELL COUNT (BEAKER) (test ekdp=803) 4.87 M/ L 4.63-6.08 HEMOGLOBIN (BEAKER) (test vtiv=140) 14.9 GM/DL 13.7-17.5 HEMATOCRIT (BEAKER) (test hjqw=174) 43.7 % 40.1-51.0 MEAN CORPUSCULAR VOLUME (BEAKER) (test gild=071) 89.7 fL 79.0-92.2 MEAN CORPUSCULAR HEMOGLOBIN (BEAKER) (test 30.6 pg 25.7-32.2 ywmb=010) MEAN CORPUSCULAR HEMOGLOBIN CONC (BEAKER) (test 34.1 GM/DL 32.3-36.5 luhq=481) RED CELL DISTRIBUTION WIDTH (BEAKER) (test 12.4 % 11.6-14.4 jlml=215) PLATELET COUNT (BEAKER) (test pbzm=927) 207 K/CU MM 150-450 MEAN PLATELET VOLUME (BEAKER) (test tlbf=657) 9.9 fL 9.4-12.4 NUCLEATED RED BLOOD CELLS (BEAKER) (test 0 /100 WBC 0-0 xdgj=181) [id number] 16:29:00 Test Item Value Reference Range Comments ACTIVATED CLOTTING TIME 301 sec TESTED AT [address] (BEAKER) (test amin=453) [place] [address] [id number] 16:02:00 Test Item Value Reference Range Comments ACTIVATED CLOTTING TIME 263 sec TESTED AT [address] (BEAKER) (test qcct=689) [place] [address] [id number] 10:05:00 Test Item Value Reference Range Comments PARTIAL THROMBOPLASTIN TIME (BEAKER) (test 64.8 seconds 22.5-36.0 tlpl=839) BASIC METABOLIC [id number] 04:48:00 Test Item Value Reference Range Comments SODIUM (BEAKER) (test 140 meq/L 136-145 pgfn=704) POTASSIUM (BEAKER) (test 4.0 meq/L 3.5-5.1 uwcb=973) CHLORIDE (BEAKER) (test 106 meq/L 98-107 xruf=274) CO2 (BEAKER) (test 27 meq/L 22-29 zusa=157) BLOOD UREA NITROGEN 15 mg/dL 7-21 (BEAKER) (test rdxj=885) CREATININE (BEAKER) (test 1.15 mg/dL 0.57-1.25 qydg=074) GLUCOSE RANDOM (BEAKER) 98 mg/dL 70-105 (test pxch=698) CALCIUM (BEAKER) (test 9.1 mg/dL 8.4-10.2 daob=570) EGFR (BEAKER) (test 66 mL/min/1.73 sq m ESTIMATED GFR IS NOT iijb=2262) ACCURATE CREATININE CLEARANCE IN PREDICTING GLOMERULAR FILTRATION RATE. ESTIMATED GFR IS NOT APPLICABLE FOR DIALYSIS PATIENTS. CBC W/PLT COUNT & AUTO [id number] 04:06:00 Test Item Value Reference Range Comments WHITE BLOOD CELL COUNT (BEAKER) (test jpri=194) 7.0 K/ L 3.5-10.5 RED BLOOD CELL COUNT (BEAKER) (test rrqd=155) 4.86 M/ L 4.63-6.08 HEMOGLOBIN (BEAKER) (test dyus=849) 14.6 GM/DL 13.7-17.5 HEMATOCRIT (BEAKER) (test himn=832) 44.0 % 40.1-51.0 MEAN CORPUSCULAR VOLUME (BEAKER) (test agdn=545) 90.5 fL 79.0-92.2 MEAN CORPUSCULAR HEMOGLOBIN (BEAKER) (test 30.0 pg 25.7-32.2 zqjm=773) MEAN CORPUSCULAR HEMOGLOBIN CONC (BEAKER) (test 33.2 GM/DL 32.3-36.5 oshq=367) RED CELL DISTRIBUTION WIDTH (BEAKER) (test 12.7 % 11.6-14.4 infn=262) PLATELET COUNT (BEAKER) (test lhhy=238) 209 K/CU MM 150-450 MEAN PLATELET VOLUME (BEAKER) (test vxmu=156) 10.1 fL 9.4-12.4 NUCLEATED RED BLOOD CELLS (BEAKER) (test 0 /100 WBC 0-0 fcwx=865) NEUTROPHILS RELATIVE PERCENT (BEAKER) (test 54 % dtjq=620) LYMPHOCYTES RELATIVE PERCENT (BEAKER) (test 35 % yknf=405) MONOCYTES RELATIVE PERCENT (BEAKER) (test 8 % wawo=370) EOSINOPHILS RELATIVE PERCENT (BEAKER) (test 1 % rznr=223) BASOPHILS RELATIVE PERCENT (BEAKER) (test 1 % sfwo=325) NEUTROPHILS ABSOLUTE COUNT (BEAKER) (test 3.79 K/ L 1.78-5.38 jodm=755) LYMPHOCYTES ABSOLUTE COUNT (BEAKER) (test 2.47 K/ L 1.32-3.57 dlst=178) MONOCYTES ABSOLUTE COUNT (BEAKER) (test 0.59 K/ L 0.30-0.82 hlbm=244) EOSINOPHILS ABSOLUTE COUNT (BEAKER) (test 0.07 K/ L 0.04-0.54 lucd=078) BASOPHILS ABSOLUTE COUNT (BEAKER) (test 0.06 K/ L 0.01-0.08 hiex=641) IMMATURE GRANULOCYTES-RELATIVE PERCENT (BEAKER) 0 % 0-1 (test ofye=6962) [id number] 01:41:00 Test Item Value Reference Range Comments PROTIME (BEAKER) (test hgig=179) 14.0 seconds 11.7-14.7 INR (BEAKER) (test zqfl=017) 1.1 <=5.9 PARTIAL THROMBOPLASTIN TIME (BEAKER) (test 54.4 seconds 22.5-36.0 iykd=615) RECOMMENDED COUMADIN/WARFARIN INR THERAPY RANGESSTANDARD DOSE: 2.0 - 3.0 Includes: PROPHYLAXIS forvenous thrombosis, systemic embolization; TREATMENT for venous thrombosis and/or pulmonary embolus.HIGH RISK: Target INR is 2.5-3.5 for patients with mechanical heart valves.TROPONIN [id number] 01:31:00 Test Item Value Reference Range Comments TROPONIN I (BEAKER) (test gmgk=786) 0.29 ng/mL 0.00-0.03 Troponin I (TnI) levels [...] acidosis, acute neurological disease, and persistent tachyarrhythmia.TROPONIN [id number] 19:05:00 Test Item Value Reference Range Comments TROPONIN I (BEAKER) (test juav=421) 0.40 ng/mL 0.00-0.03 Troponin I (TnI) levels [...] failure, acidosis, acute neurological disease, and persistent tachyarrhythmia.[id number] 18:35:00 Test Item Value Reference Range Comments PARTIAL THROMBOPLASTIN TIME (BEAKER) (test 40.3 seconds 22.5-36.0 kezc=678) TROPONIN [id number] 13:51:00 Test Item Value Reference Range Comments TROPONIN I (BEAKER) (test fvyo=757) 0.29 ng/mL 0.00-0.03 Troponin I (TnI) levels [...] and persistent tachyarrhythmia.CREATINE KINASE (CK), TOTAL AND [id number] 12:22:00 Test Item Value Reference Range Comments CREATINE KINASE TOTAL (BEAKER) (test aclj=804) 113 U/L 29-200 CREATINE KINASE-MB (BEAKER) (test bezd=580) 2.9 ng/mL 0.0-6.6 CREATINE KINASE-MB INDEX (BEAKER) (test nrqj=238) 2.6 % CK-MB Reference Range:<6.7 Normal6.7-10.0 Borderline>10.0 AbnormalCOMPREHENSIVE METABOLIC [id number] 12:16:00 Test Item Value Reference Range Comments TOTAL PROTEIN (BEAKER) 7.0 gm/dL 6.0-8.3 Specimen slightly (test tdwd=555) hemolyzed ALBUMIN (BEAKER) (test 3.8 g/dL 3.5-5.0 Specimen slightly gawb=1329) hemolyzed ALKALINE PHOSPHATASE 58 U/L 40-150 (BEAKER) (test iint=454) BILIRUBIN TOTAL (BEAKER) 0.6 mg/dL 0.2-1.2 Specimen slightly (test yryj=130) hemolyzed SODIUM (BEAKER) (test 140 meq/L 136-145 ghus=573) POTASSIUM (BEAKER) (test 4.4 meq/L 3.5-5.1 Specimen slightly yctj=544) hemolyzed CHLORIDE (BEAKER) (test 106 meq/L 98-107 ifvx=564) CO2 (BEAKER) (test 27 meq/L 22-29 jpbs=071) BLOOD UREA NITROGEN 12 mg/dL 7-21 (BEAKER) (test ggam=830) CREATININE (BEAKER) (test 1.00 mg/dL 0.57-1.25 Specimen slightly adkk=383) hemolyzed GLUCOSE RANDOM (BEAKER) 104 mg/dL 70-105 (test czzq=023) CALCIUM (BEAKER) (test 9.7 mg/dL 8.4-10.2 vjxq=231) AST (SGOT) (BEAKER) (test 21 U/L 5-34 Specimen slightly tgty=713) hemolyzed ALT (SGPT) (BEAKER) (test 22 U/L 6-55 Specimen slightly qiag=020) hemolyzed EGFR (BEAKER) (test 77 mL/min/1.73 sq m ESTIMATED GFR IS NOT lanb=4586) ACCURATE CREATININE CLEARANCE IN PREDICTING GLOMERULAR FILTRATION RATE. ESTIMATED GFR IS NOT APPLICABLE FOR DIALYSIS PATIENTS. LIPID [id number] 12:16:00 Test Item Value Reference Range Comments TRIGLYCERIDES (BEAKER) (test 103 mg/dL Specimen slightly hemolyzed mjmg=128) CHOLESTEROL (BEAKER) (test 243 mg/dL Specimen slightly hemolyzed cmjh=916) HDL CHOLESTEROL (BEAKER) (test 36 mg/dL auva=968) LDL CHOLESTEROL CALCULATED 186 mg/dL (BEAKER) (test ibdc=647) Triglyceride Reference Range: Low Risk <150 Borderline 150- 199 High Risk 200-499 Very High Risk >=500Cholesterol Reference Range: Low Risk <200 Borderline 200-239 High Risk > 240HDL Cholesterol Reference Range: Low Risk >=60 High Risk <40LDL Cholesterol Reference Range: Optimal <100 Near Optimal 100-129 Borderline 130-159 High 160-189 Very High >=190PT/[id number] 11:44:00 Test Item Value Reference Range Comments PROTIME (BEAKER) (test ouwt=961) 13.8 seconds 11.7-14.7 INR (BEAKER) (test bugp=294) 1.1 <=5.9 PARTIAL THROMBOPLASTIN TIME (BEAKER) (test 36.6 seconds 22.5-36.0 azbe=286) RECOMMENDED COUMADIN/WARFARIN INR THERAPY RANGESSTANDARD DOSE: 2.0 - 3.0 Includes: PROPHYLAXIS forvenous thrombosis, systemic embolization; TREATMENT for venous thrombosis and/or pulmonary embolus.HIGH RISK: Target INR is 2.5-3.5 for patients with mechanical heart valves.Prior to initiating heparinPrior to initiating heparinCBC W/PLT COUNT & AUTO [id number] 11:37:00 Test Item Value Reference Range Comments WHITE BLOOD CELL COUNT (BEAKER) (test bwqs=682) 5.7 K/ L 3.5-10.5 RED BLOOD CELL COUNT (BEAKER) (test mvys=480) 5.12 M/ L 4.63-6.08 HEMOGLOBIN (BEAKER) (test hpzu=209) 15.8 GM/DL 13.7-17.5 HEMATOCRIT (BEAKER) (test tmoy=827) 46.2 % 40.1-51.0 MEAN CORPUSCULAR VOLUME (BEAKER) (test qwgb=455) 90.2 fL 79.0-92.2 MEAN CORPUSCULAR HEMOGLOBIN (BEAKER) (test 30.9 pg 25.7-32.2 jtrl=557) MEAN CORPUSCULAR HEMOGLOBIN CONC (BEAKER) (test 34.2 GM/DL 32.3-36.5 ytak=691) RED CELL DISTRIBUTION WIDTH (BEAKER) (test 12.7 % 11.6-14.4 fvzk=270) PLATELET COUNT (BEAKER) (test ooyi=691) 232 K/CU MM 150-450 MEAN PLATELET VOLUME (BEAKER) (test xldk=423) 9.9 fL 9.4-12.4 NUCLEATED RED BLOOD CELLS (BEAKER) (test 0 /100 WBC 0-0 yxpl=206) NEUTROPHILS RELATIVE PERCENT (BEAKER) (test 63 % kceq=095) LYMPHOCYTES RELATIVE PERCENT (BEAKER) (test 30 % zetv=050) MONOCYTES RELATIVE PERCENT (BEAKER) (test 7 % jfyr=586) EOSINOPHILS RELATIVE PERCENT (BEAKER) (test 0 % gbkr=723) BASOPHILS RELATIVE PERCENT (BEAKER) (test 1 % hvhr=034) NEUTROPHILS ABSOLUTE COUNT (BEAKER) (test 3.59 K/ L 1.78-5.38 ibrv=277) LYMPHOCYTES ABSOLUTE COUNT (BEAKER) (test 1.69 K/ L 1.32-3.57 dsfl=416) MONOCYTES ABSOLUTE COUNT (BEAKER) (test 0.37 K/ L 0.30-0.82 xzka=372) EOSINOPHILS ABSOLUTE COUNT (BEAKER) (test 0.02 K/ L 0.04-0.54 ypfx=591) BASOPHILS ABSOLUTE COUNT (BEAKER) (test 0.05 K/ L 0.01-0.08 jegs=147) IMMATURE GRANULOCYTES-RELATIVE PERCENT (BEAKER) 0 % 0-1 (test bixw=[id number]) RAD, CHEST, 1 VIEW, NON [id number] 11:23:00Post-intubationReason for exam:-& gt;NSTEMI, chest painShould this be performed at the bedside?->YesFINAL REPORT Chest one view Discussion: Heart, lungs, bones, soft tissues unremarkable. No effusion or pneumothorax. Signed: Angelo Fish Verified Date/Time: 10/26/201711:23:17 Reading Location: [address] Reading Room
[2019-04-26] MEDS ORDERED: MORPHINE 4 MG/ML SYR ONE (09:36)
[2019-04-26] MEDS ORDERED: ONDANSETRON 4 MG/2 ML VIAL ONE (09:37)
[2019-04-26] MEDS ORDERED: KETOROLAC 30 MG/ML INJ ONE (09:37)
[2019-04-26] MEDS ORDERED: MAGNESIUM SULFATE 1 gm IVPB 1 GM/100 ML BAG IV ONE (09:37)
[2019-04-26 09:58] LABS: Potassium 4.3 mmol/L (3.5-5.1)
--- NOTE | 2019-04-26 10:39 | RAD REPORT ---
EXAM DESCRIPTION: CT - Stone Protocol - 04/26/2019 9:51 am CLINICAL HISTORY: Abdominal pain. Right flank pain COMPARISON: 04/23/2019 TECHNIQUE: Computed axial tomography of the abdomen pelvis was obtained without oral or IV contrast. Lack of IV and oral contrast limits evaluation of solid organs, bowel, and vessels. Coronal reformat donald images were obtained and reviewed. All CT scans are performed using dose optimization technique as appropriate and may include automated exposure control or mA/KV adjustment according to patient size. FINDINGS: Small bilateral renal calculi. Mild right hydronephrosis. A 2.5 millimeter calculus is pre sent near the right ureteral vesicle junction. It has migrated 1 centimeter distally since the prior exam. 28 millimeter low-density mass dome of the liver unchanged, Spleen, pancreas and adrenals appear grossly normal There is no evidence of diverticulitis. The appendix appears normal A small umbilical hernia. Mild enlargement of the prostate gland Rectal tubing present IMPRESSION: 2.5 millimeter calculus near the right ureterovesical junction resulting in mild right h ydronephrosis 28 low-density hepatic mass within the liver most likely representing cyst. Ultrasound in 3 months re commended for confirmation
--- NOTE | 2019-04-26 11:11 | ER ---
Nurse's Notes [facility] Name: Ramirez Gould Jr Age: 58 yrs Sex: Male : 1960 Arrival Date: 04/26/2019 Time: 08:58 Bed 17 Private MD: out of town, doctor Diagnosis: Calculus of kidney and ureter Presentation: 04/26 09:03 Presenting complaint: Seen in ED 3 days ago for kidney stone, reports worsening right hb flank pain 9/10. Transition of care: patient was not received from another setting of care. Onset of symptoms was April 26, 2019. Risk Assessment: Do you want to hurt yourself or someone else? Patient reports no desire to harm self or others. Care prior to arrival: None. 09:03 Method Of Arrival: Ambulatory hb 09:03 Acuity: JOHN 3 hb 09:30 Initial Sepsis Screen: Does the patient meet any 2 criteria? No. Patient's initial aa5 sepsis screen is negative. Does the patient have a suspected source of infection? No. Patient's initial sepsis screen is negative. Historical: - Allergies: 09:05 No Known Allergies; hb - Home Meds: 09:05 BRILINTA 90 mg Oral tab 1 tab 2 times per day [Active]; metoprolol tartrate 25 mg Oral hb tab 0.5 tab 2 times per day [Active]; - PMHx: 09:05 GERD; Hypertension; Myocardial infarction; hb - PSHx: 09:05 Cholecystectomy; Heart stents; hb - Immunization history:: Adult Immunizations up to date. - Social history:: Smoking status: Patient/guardian denies using tobacco. - Ebola Screening: : No symptoms or risks identified at this time. Screenin:00 Abuse screen: Denies threats or abuse. Nutritional screening: No deficits noted. aa5 Tuberculosis screening: No symptoms or risk factors identified. Fall Risk None identified. Assessment: 09:30 General: Appears uncomfortable, Behavior is cooperative, restless. Pain: Pain: aa5 Complains of pain in right flank Pain radiates to right groin Pain currently is 9 out of 10 on a pain scale. Quality of pain is described as sharp, shooting, Pain began 3 days ago but got worse this morning Is continuous. Neuro: Level of Consciousness is awake, alert, obeys commands, Oriented to person, place, time, situation. Cardiovascular: Heart tones S1 S2 present Rhythm is regular. Respiratory: Airway is patent Respiratory effort is even, unlabored, Respiratory pattern is regular, symmetrical. GI: Abdomen is round non-distended, Bowel sounds present X 4 quads. Abd is soft and non tender X 4 quads. Patient currently denies nausea, vomiting. : Denies inability to void, denies blood in urine. EENT: No signs and/or symptoms were reported regarding the EENT system. Derm: Skin is pink, warm \T\ dry. Musculoskeletal: Range of motion: intact in all extremities. 10:00 Reassessment: Patient is alert, oriented x 3, equal unlabored respirations, skin aa5 warm/dry/pink. Patient states feeling better. Patient states symptoms have improved. Pt back from CT via stretcher. . Pain: Denies pain. 10:30 Reassessment: Patient is alert, oriented x 3, equal unlabored respirations, skin aa5 warm/dry/pink. Patient denies pain at this time. Urine specimen collected, urine is clear yellow . 11:00 Reassessment: Patient is alert, oriented x 3, equal unlabored respirations, skin aa5 warm/dry/pink. Patient denies pain at this time. Awaiting disposition, pt notified of wait time . 11:40 Reassessment: Patient is alert, oriented x 3, equal unlabored respirations, skin aa5 warm/dry/pink. Patient denies pain at this time. Vital Signs: 09:04 BP 121 / 73; Pulse 66; Resp 16; Temp 97.8; Pulse Ox 100% on R/A; Weight 106.59 kg; hb Height 5 ft. 10 in. (177.80 cm); Pain 9/10; 10:00 BP 135 / 88; Pulse 68; Resp 16 S; Pulse Ox 95% on R/A; Pain 0/10; aa5 11:00 BP 138 / 84; Pulse 67; Resp 18 S; Pulse Ox 98% on R/A; Pain 0/10; aa5 09:04 Body Mass Index 33.72 (106.59 kg, 177.80 cm) hb ED Course: 08:58 Patient arrived in ED. dl4 08:59 out of town, doctor is Private Physician. dl4 09:01 Tosha Oakley [facility]C [facility]. kb 09:01 Spike Santiago MD is Attending Physician. kb 09:04 Triage completed. hb 09:04 Arm band placed on. hb 09:13 Bisi Parks, RN is Primary Nurse. aa5 09:30 Patient has correct armband on for positive identification. Bed in low position. Call aa5 light in reach. Side rails up X2. Adult w/ patient. 09:34 Initial lab(s) drawn, by nd, sent to lab. Inserted saline lock: 20 gauge in left aa5 antecubital area, using aseptic technique. Blood collected. 09:52 CT Stone Protocol In Process Unspecified. EDMS 09:57 CT completed. Patient tolerated procedure well. Patient moved back from CT. mw3 10:42 No provider procedures requiring assistance completed. aa5 11:40 IV discontinued, intact, bleeding controlled, No redness/swelling at site. Pressure aa5 dressing applied. Administered Medications: 09:38 Drug: morphine 4 mg Route: IVP; Site: left antecubital; aa5 10:00 Follow up: Response: No adverse reaction; Pain is decreased aa5 09:38 Drug: Zofran 4 mg Route: IVP; Site: left antecubital; aa5 10:00 Follow up: Response: No adverse reaction aa5 09:38 Drug: TORadol - Ketorolac 15 mg Route: IVP; Site: left antecubital; aa5 10:00 Follow up: Response: No adverse reaction aa5 10:00 Drug: Magnesium Sulfate 1 grams Route: IVPB; Infused Over: 1 hrs; Site: left aa5 antecubital; 11:00 Follow up: Response: No adverse reaction; IV Status: Completed infusion aa5 Outcome: 11:09 Discharge ordered by . kb 11:40 Discharged to home ambulatory, with significant other. aa5 11:40 Condition: improved 11:40 Discharge instructions given to patient, significant other, Instructed on discharge instructions, follow up and referral plans. medication usage, Demonstrated understanding of instructions, follow-up care, medications, Prescriptions given X 2. 11:43 Patient left the ED. aa5 Signatures: Dispatcher [employer] EDIN Tosha Oakley, ADRIANO-C SENIOR PROJECT LEADER/TEAM LEAD-Bisi Oakley, RN RN aa5 Nayeli Aranda RN RN Awa Florez mw3 Lobito Ramírez dl4 Corrections: (The following items were deleted from the chart) 10:54 09:30 Pain: aa5 aa5
--- NOTE | 2019-04-26 11:11 | EDPHYS ---
Physician Documentation [facility] Name: Ramirez Gould Jr Age: 58 yrs Sex: Male : 1960 Arrival Date: 04/26/2019 Time: 08:58 Bed 17 Private MD: out of town, doctor ED Physician Spike Santiago HPI: 04/26 09:25 This 58 yrs old Male presents to ER via Ambulatory with complaints of Low kb Back Pain. 09:25 The patient complains of pain in the left flank. The pain radiates to the left lower kb quadrant. Onset: The symptoms/episode began/occurred last week, and became worse this morning. Modifying factors: The symptoms are alleviated by nothing. the symptoms are aggravated by nothing. Associated signs and symptoms: The patient has no apparent associated signs or symptoms. Severity of pain: At its worst the pain was severe in the emergency department the pain has improved mildly. The patient has not experienced similar symptoms in the past. The patient has not recently seen a physician. 09:27 Pt was diagnosed with kidney stones in the left side 3 days ago. States he has been kb staying on top of the pain with medication, but severe pain woke him up at 0430. States the pain is now radiating to LLQ. Historical: - Allergies: 09:05 No Known Allergies; hb - Home Meds: 09:05 BRILINTA 90 mg Oral tab 1 tab 2 times per day [Active]; metoprolol tartrate 25 mg Oral hb tab 0.5 tab 2 times per day [Active]; - PMHx: 09:05 GERD; Hypertension; Myocardial infarction; hb - PSHx: 09:05 Cholecystectomy; Heart stents; hb - Immunization history:: Adult Immunizations up to date. - Social history:: Smoking status: Patient/guardian denies using tobacco. - Ebola Screening: : No symptoms or risks identified at this time. ROS: 09:27 Constitutional: Negative for fever, chills, and weight loss, Cardiovascular: Negative kb for chest pain, palpitations, and edema, Respiratory: Negative for shortness of breath, cough, wheezing, and pleuritic chest pain, Abdomen/GI: Negative for abdominal pain, nausea, vomiting, diarrhea, and constipation, MS/Extremity: Negative for injury and deformity, Skin: Negative for injury, rash, and discoloration, Neuro: Negative for headache, weakness, numbness, tingling, and seizure. 09:27 Back: Positive for flank pain, on the left. Exam: 09:27 Constitutional: This is a well developed, well nourished patient who is awake, alert, kb and in no acute distress. Head/Face: Normocephalic, atraumatic. Neck: Trachea midline, no thyromegaly or masses palpated, and no cervical lymphadenopathy. Supple, full range of motion without nuchal rigidity, or vertebral point tenderness. No Meningismus. Chest/axilla: Normal chest wall appearance and motion. Nontender with no deformity. No lesions are appreciated. Cardiovascular: Regular rate and rhythm with a normal S1 and S2. No gallops, murmurs, or rubs. Normal PMI, no JVD. No pulse deficits. Respiratory: Lungs have equal breath sounds bilaterally, clear to auscultation and percussion. No rales, rhonchi or wheezes noted. No increased work of breathing, no retractions or nasal flaring. Abdomen/GI: Soft, non-tender, with normal bowel sounds. No distension or tympany. No guarding or rebound. No evidence of tenderness throughout. Back: No spinal tenderness. No costovertebral tenderness. Full range of motion. Skin: Warm, dry with normal turgor. Normal color with no rashes, no lesions, and no evidence of cellulitis. MS/ Extremity: Pulses equal, no cyanosis. Neurovascular intact. Full, normal range of motion. Neuro: Awake and alert, GCS 15, oriented to person, place, time, and situation. Cranial nerves II-XII grossly intact. Motor strength 5/5 in all extremities. Sensory grossly intact. Cerebellar exam normal. Normal gait. Vital Signs: 09:04 BP 121 / 73; Pulse 66; Resp 16; Temp 97.8; Pulse Ox 100% on R/A; Weight 106.59 kg; hb Height 5 ft. 10 in. (177.80 cm); Pain 9/10; 10:00 BP 135 / 88; Pulse 68; Resp 16 S; Pulse Ox 95% on R/A; Pain 0/10; aa5 11:00 BP 138 / 84; Pulse 67; Resp 18 S; Pulse Ox 98% on R/A; Pain 0/10; aa5 09:04 Body Mass Index 33.72 (106.59 kg, 177.80 cm) hb MDM: 09:01 Patient medically screened. kb 09:25 Data reviewed: vital signs, nurses notes. Data interpreted: Pulse oximetry: on room air kb is 100 %. Interpretation: normal. 11:06 Counseling: I had a detailed discussion with the patient and/or guardian regarding: the kb historical points, exam findings, and any diagnostic results supporting the discharge/admit diagnosis, lab results, radiology results, the need for outpatient follow up, a urologist, to return to the emergency department if symptoms worsen or persist or if there are any questions or concerns that arise at home. 04/26 09:12 Order name: Basic Metabolic Panel; Complete Time: 10:06 kb 04/26 10:39 Order name: Urine Dipstick--Ancillary (enter results); Complete Time: 11:21 hb 04/26 09:12 Order name: CT Stone Protocol; Complete Time: 11:03 kb 04/26 09:12 Order name: IV Start; Complete Time: 09:38 kb 04/26 09:12 Order name: Urine Dipstick-Ancillary (obtain specimen); Complete Time: 10:31 kb Administered Medications: 09:38 Drug: morphine 4 mg Route: IVP; Site: left antecubital; aa5 10:00 Follow up: Response: No adverse reaction; Pain is decreased aa5 09:38 Drug: Zofran 4 mg Route: IVP; Site: left antecubital; aa5 10:00 Follow up: Response: No adverse reaction aa5 09:38 Drug: TORadol - Ketorolac 15 mg Route: IVP; Site: left antecubital; aa5 10:00 Follow up: Response: No adverse reaction aa5 10:00 Drug: Magnesium Sulfate 1 grams Route: IVPB; Infused Over: 1 hrs; Site: left aa5 antecubital; 11:00 Follow up: Response: No adverse reaction; IV Status: Completed infusion aa5 Disposition: 04/27 09:18 Co-signature as Attending Physician, Spike Santiago MD I agree with the assessment and lulu plan of care. Disposition: 04/26/19 11:09 Discharged to Home. Impression: Calculus of kidney and ureter. - Condition is Stable. - Discharge Instructions: Kidney Stones, [id number], Dietary Guidelines to Help Prevent Kidney Stones. - Prescriptions for Flomax 0.4 mg Oral Capsule, Sust. Release 24 hr - take 1 capsule by ORAL route once daily 1/2 hour following the same meal each day; 5 capsule. Diclofenac Sodium 75 mg Oral Tablet, Delayed Release (E.C.) - take 1 tablet by ORAL route 2 times per day As needed; 30 tablet. - Medication Reconciliation Form, Thank You Letter, Antibiotic Education, Prescription Opioid Use form. - Follow up: Emergency Department; When: As needed; Reason: Worsening of condition. Follow up: Private Physician; When: 2 - 3 days; Reason: Recheck today's complaints, Continuance of care, Re-evaluation by your physician. Signatures: Dispatcher [employer] EDMS Tosha Oakley, ASSISTANT MEDIA BUYER-C ASSISTANT MEDIA BUYER-Felibertob Spike Santiago MD MD cha Calderon, Audri, RN RN aa5 Nayeli Aranda RN RN Corrections: (The following items were deleted from the chart) 04/26 11:43 11:09 04/26/2019 11:09 Discharged to Home. Impression: Calculus of kidney and ureter. aa5 Condition is Stable. Forms are Medication Reconciliation Form, Thank You Letter, Antibiotic Education, Prescription Opioid Use. Follow up: Emergency Department; When: As needed; Reason: Worsening of condition. Follow up: Private Physician; When: 2 - 3 days; Reason: Recheck today's complaints, Continuance of care, Re-evaluation by your physician. kb
[2019-04-26 11:18] LABS: Urine Blood TRACE (NEG); Urine Glucose NEGATIVE (NEG); Urine Protein NEGATIVE (NEG); Urine Specific Gravity 1.015 (1.005-1.030); Urine pH 7.5 (5.0-7.0)
== END 2019-04-26 11:43 | disposition home or self-care (01) ==
LOC: ER 08:56
DX: N20.1 Calculus of ureter (principal); N20.0 Calculus of kidney; I10 Essential (primary) hypertension; I25.2 Old myocardial infarction
CPT/HCPCS: 96365; 80048; 36415; 81003; 76377; 74176; 96375; 99284; J3475; J2405

== ENCOUNTER 2021-11-18 09:22 | Emergency (ER) | payer BC ==
--- OUTSIDE RECORDS SUMMARY | 2021-11-18 09:24 | XMS REPORT | Continuity of Care Document ---
:1960 Author Organization [facility] t Address [address] [place] [address] Care Team Providers Name Role Phone SHANE CAZARES Attending Clinician Unavailable SHANE CAZARES Admitting Clinician Unavailable Problems This patient has no known problems. Allergies, Adverse Reactions, Alerts This patient has no known allergies or adverse reactions. Medications This patient has no known medications. Procedures This patient has no known procedures. Results Test Description Test Time Test Comments Results Result Comments Source BASIC METABOLIC PANEL 2017-10-28 06:47:00 Test Item Value Reference Range Interpretation Comme nts SODIUM (BEAKER) (test code 139 meq/L 136-145 = 381) POTASSIUM (BEAKER) (test 3.9 meq/L 3.5-5.1 code = 379) CHLORIDE (BEAKER) (test 106 meq/L 98-107 code = 382) CO2 (BEAKER) (test code = 24 meq/L 22-29 355) BLOOD UREA NITROGEN 14 mg/dL 7-21 (BEAKER) (test code = 354) CREATININE (BEAKER) (test 0.79 mg/dL 0.57-1.25 code = 358) GLUCOSE RANDOM (BEAKER) 85 mg/dL 70-105 (test code = 652) CALCIUM (BEAKER) (test 8.6 mg/dL 8.4-10.2 code = 697) EGFR (BEAKER) (test code = 101 mL/min/1.73 sq m ESTIMATED GFR IS NOT 1092) ACCURATE CRE ATININE CLEARANCE IN SD EDICTING GLOMERULAR FILT RATION RATE. ESTIMATED GFR IS NOT APPLICABLE FOR DIALYSIS PATIENTS. CBC W/PLT COUNT & AUTO [id number] 05:53:00 Test Item Value Reference Range Interpretation Comments WHITE BLOOD CELL COUNT (BEAKER) 7.4 K/ L 3.5-10.5 (test code = 775) RED BLOOD CELL COUNT (BEAKER) 5.00 M/ L 4.63-6.08 (test code = 761) HEMOGLOBIN (BEAKER) (test code = 15.1 GM/DL 13.7-17.5 410) HEMATOCRIT (BEAKER) (test code = 44.5 % 40.1-51.0 411) MEAN CORPUSCULAR VOLUME (BEAKER) 89.0 fL 79.0-92.2 (test code = 753) MEAN CORPUSCULAR HEMOGLOBIN 30.2 pg 25.7-32.2 (BEAKER) (test code = 751) MEAN CORPUSCULAR HEMOGLOBIN CONC 33.9 GM/DL 32.3-36.5 (BEAKER) (test code = 752) RED CELL DISTRIBUTION WIDTH 12.6 % 11.6-14.4 (BEAKER) (test code = 412) PLATELET COUNT (BEAKER) (test 208 K/CU MM 150-450 code = 756) MEAN PLATELET VOLUME (BEAKER) 10.2 fL 9.4-12.4 (test code = 754) NUCLEATED RED BLOOD CELLS 0 /100 WBC 0-0 (BEAKER) (test code = 413) NEUTROPHILS RELATIVE PERCENT 70 % (BEAKER) (test code = 429) LYMPHOCYTES RELATIVE PERCENT 21 % (BEAKER) (test code = 430) MONOCYTES RELATIVE PERCENT 8 % (BEAKER) (test code = 431) EOSINOPHILS RELATIVE PERCENT 1 % (BEAKER) (test code = 432) BASOPHILS RELATIVE PERCENT 1 % (BEAKER) (test code = 437) NEUTROPHILS ABSOLUTE COUNT 5.23 K/ L 1.78-5.38 (BEAKER) (test code = 670) LYMPHOCYTES ABSOLUTE COUNT 1.52 K/ L 1.32-3.57 (BEAKER) (test code = 414) MONOCYTES ABSOLUTE COUNT (BEAKER) 0.57 K/ L 0.30-0.82 (test code = 415) EOSINOPHILS ABSOLUTE COUNT 0.05 K/ L 0.04-0.54 (BEAKER) (test code = 416) BASOPHILS ABSOLUTE COUNT (BEAKER) 0.04 K/ L 0.01-0.08 (test code = 417) IMMATURE GRANULOCYTES-RELATIVE 0 % 0-1 PERCENT (BEAKER) (test code = 2801) CBC (HEMOGRAM ONLY)2017-10-27 20:50:00 Test Item Value Reference Range Interpretation Comments WHITE BLOOD CELL COUNT (BEAKER) 6.3 K/ L 3.5-10.5 (test code = 775) RED BLOOD CELL COUNT (BEAKER) 4.87 M/ L 4.63-6.08 (test code = 761) HEMOGLOBIN (BEAKER) (test code = 14.9 GM/DL 13.7-17.5 410) HEMATOCRIT (BEAKER) (test code = 43.7 % 40.1-51.0 411) MEAN CORPUSCULAR VOLUME (BEAKER) 89.7 fL 79.0-92.2 (test code = 753) MEAN CORPUSCULAR HEMOGLOBIN 30.6 pg 25.7-32.2 (BEAKER) (test code = 751) MEAN CORPUSCULAR HEMOGLOBIN CONC 34.1 GM/DL 32.3-36.5 (BEAKER) (test code = 752) RED CELL DISTRIBUTION WIDTH 12.4 % 11.6-14.4 (BEAKER) (test code = 412) PLATELET COUNT (BEAKER) (test 207 K/CU MM 150-450 code = 756) MEAN PLATELET VOLUME (BEAKER) 9.9 fL 9.4-12.4 (test code = 754) NUCLEATED RED BLOOD CELLS 0 /100 WBC 0-0 (BEAKER) (test code = 413) [id number] 16:29:00 Test Item Value Reference Range Interpretation Comments ACTIVATED CLOTTING TIME 301 sec TEST ED AT [place] [address] ([facility]) (test code = [place] [address]) [id number] 16:02:00 Test Item Value Reference Range Interpretation Comments ACTIVATED CLOTTING TIME 263 sec TEST ED AT [place] [address] ([facility]) (test code = [place] [address]) [id number] 10:05:00 Test Item Value Reference Range Interpretation Comments PARTIAL THROMBOPLASTIN TIME 64.8 seconds 22.5-36.0 H (BEAKER) (test code = 760) BASIC METABOLIC [id number] 04:48:00 Test Item Value Reference Range Interpretation Comments SODIUM (BEAKER) 140 meq/L 136-145 (test code = 381) POTASSIUM (BEAKER) 4.0 meq/L 3.5-5.1 (test code = 379) CHLORIDE (BEAKER) 106 meq/L 98-107 (test code = 382) CO2 (BEAKER) (test 27 meq/L 22-29 code = 355) BLOOD UREA NITROGEN 15 mg/dL 7-21 (BEAKER) (test code = 354) CREATININE (BEAKER) 1.15 mg/dL 0.57-1.25 (test code = 358) GLUCOSE RANDOM 98 mg/dL 70-105 (BEAKER) (test code = 652) CALCIUM (BEAKER) 9.1 mg/dL 8.4-10.2 (test code = 697) EGFR (BEAKER) (test 66 mL/min/1.73 ESTIMA TRAE GFR IS code = 1092) sq m NOT ACCURATE CREATININE CLEARANCE IN PREDICTING GLOMERULAR FILTRATION RATE . ESTIMATED GFR I S NOT APPLICABLE FOR DIALYSIS PATIEN TS. CBC W/PLT COUNT & AUTO [id number] 04:06:00 Test Item Value Reference Range Interpretation Comments WHITE BLOOD CELL COUNT (BEAKER) 7.0 K/ L 3.5-10.5 (test code = 775) RED BLOOD CELL COUNT (BEAKER) 4.86 M/ L 4.63-6.08 (test code = 761) HEMOGLOBIN (BEAKER) (test code = 14.6 GM/DL 13.7-17.5 410) HEMATOCRIT (BEAKER) (test code = 44.0 % 40.1-51.0 411) MEAN CORPUSCULAR VOLUME (BEAKER) 90.5 fL 79.0-92.2 (test code = 753) MEAN CORPUSCULAR HEMOGLOBIN 30.0 pg 25.7-32.2 (BEAKER) (test code = 751) MEAN CORPUSCULAR HEMOGLOBIN CONC 33.2 GM/DL 32.3-36.5 (BEAKER) (test code = 752) RED CELL DISTRIBUTION WIDTH 12.7 % 11.6-14.4 (BEAKER) (test code = 412) PLATELET COUNT (BEAKER) (test 209 K/CU MM 150-450 code = 756) MEAN PLATELET VOLUME (BEAKER) 10.1 fL 9.4-12.4 (test code = 754) NUCLEATED RED BLOOD CELLS 0 /100 WBC 0-0 (BEAKER) (test code = 413) NEUTROPHILS RELATIVE PERCENT 54 % (BEAKER) (test code = 429) LYMPHOCYTES RELATIVE PERCENT 35 % (BEAKER) (test code = 430) MONOCYTES RELATIVE PERCENT 8 % (BEAKER) (test code = 431) EOSINOPHILS RELATIVE PERCENT 1 % (BEAKER) (test code = 432) BASOPHILS RELATIVE PERCENT 1 % (BEAKER) (test code = 437) NEUTROPHILS ABSOLUTE COUNT 3.79 K/ L 1.78-5.38 (BEAKER) (test code = 670) LYMPHOCYTES ABSOLUTE COUNT 2.47 K/ L 1.32-3.57 (BEAKER) (test code = 414) MONOCYTES ABSOLUTE COUNT (BEAKER) 0.59 K/ L 0.30-0.82 (test code = 415) EOSINOPHILS ABSOLUTE COUNT 0.07 K/ L 0.04-0.54 (BEAKER) (test code = 416) BASOPHILS ABSOLUTE COUNT (BEAKER) 0.06 K/ L 0.01-0.08 (test code = 417) IMMATURE GRANULOCYTES-RELATIVE 0 % 0-1 PERCENT (BEAKER) (test code = 2801) [id number] 01:41:00 Test Item Value Reference Range Interpretation Comments PROTIME (BEAKER) (test code = 14.0 seconds 11.7-14.7 759) INR (BEAKER) (test code = 370) 1.1 <=5.9 PARTIAL THROMBOPLASTIN TIME 54.4 seconds 22.5-36.0 H (BEAKER) (test code = 760) RECOMMENDED COUMADIN/WARFARIN INR THERAPY RANGESSTANDARD DOSE: 2.0 - 3.0 Includes: PROPHYLAXIS forvenous thrombosis, systemic embolization; TREATMENT for venous thrombosis and/or pulmonary embolus.HIGH RISK: Target INR is 2.5-3.5 for patients with mechanical heart valves.TROPONIN [id number] 01:31:00 Test Item Value Reference Range Interpretation Comments TROPONIN I (BEAKER) (test code = 0.29 ng/mL 0.00-0.03 HH 397) Troponin I (TnI) levels must be interpreted [...] acidosis, acute neurological disease, and persistent tachyarrhythmia.TROPONIN [id number] 19:05:00 Test Item Value Reference Range Interpretation Comments TROPONIN I (BEAKER) (test code = 0.40 ng/mL 0.00-0.03 397) Troponin I (TnI) levels must be interpreted [...] failure, acidosis, acute neurological disease, and persistent tachyarrhythmia.[id number] 18:35:00 Test Item Value Reference Range Interpretation Comments PARTIAL THROMBOPLASTIN TIME 40.3 seconds 22.5-36.0 H (BEAKER) (test code = 760) TROPONIN [id number] 13:51:00 Test Item Value Reference Range Interpretation Comments TROPONIN I (BEAKER) (test code = 0.29 ng/mL 0.00-0.03 397) Troponin I (TnI) levels must be interpreted [...] and persistent tachyarrhythmia.CREATINE KINASE (CK), TOTAL AND MB 2017-10-26 12:22:00 Test Item Value Reference Range Interpretation Comments CREATINE KINASE TOTAL (BEAKER) 113 U/L 29-200 (test code = 380) CREATINE KINASE-MB (BEAKER) (test 2.9 ng/mL 0.0-6.6 code = 750) CREATINE KINASE-MB INDEX (BEAKER) 2.6 % (test code = 395) CK-MB Reference Range:<6.7 Normal6.7-10.0 Borderline>10.0 AbnormalCOMPREHENSIVE METABOLIC [id number] 12:16:00 Test Item Value Reference Range Interpretation Comments TOTAL PROTEIN 7.0 gm/dL 6.0-8.3 Specimen sligh tly (BEAKER) (test code = hemoly zed 770) ALBUMIN (BEAKER) 3.8 g/dL 3.5-5.0 Specimen sl ightly (test code = 1145) hemolyzed ALKALINE PHOSPHATASE 58 U/L 40-150 (BEAKER) (test code = 346) BILIRUBIN TOTAL 0.6 mg/dL 0.2-1.2 Specimen sli ghtly (BEAKER) (test code = hemoly zed 377) SODIUM (BEAKER) (test 140 meq/L 136-145 code = 381) POTASSIUM (BEAKER) 4.4 meq/L 3.5-5.1 Specimen slightly (test code = 379) hemolyzed CHLORIDE (BEAKER) 106 meq/L 98-107 (test code = 382) CO2 (BEAKER) (test 27 meq/L 22-29 code = 355) BLOOD UREA NITROGEN 12 mg/dL 7-21 (BEAKER) (test code = 354) CREATININE (BEAKER) 1.00 mg/dL 0.57-1.25 Specimen slightly (test code = 358) hemolyzed GLUCOSE RANDOM 104 mg/dL 70-105 (BEAKER) (test code = 652) CALCIUM (BEAKER) 9.7 mg/dL 8.4-10.2 (test code = 697) AST (SGOT) (BEAKER) 21 U/L 5-34 Specimen slightly (test code = 353) hemolyzed ALT (SGPT) (BEAKER) 22 U/L 6-55 Specimen slightly (test code = 347) hemolyzed EGFR (BEAKER) (test 77 mL/min/1.73 ESTIMA TRAE GFR IS code = 1092) sq m NOT ACCURATE CREATININE CLEARANCE IN PREDICTING GLOMERULAR FILTRATION RATE . ESTIMATED GFR I S NOT APPLICABLE FOR DIALYSIS PATIEN TS. LIPID [id number] 12:16:00 Test Item Value Reference Range Interpretation Comments TRIGLYCERIDES (BEAKER) 103 mg/dL Speci men slightly (test code = 540) hemolyzed CHOLESTEROL (BEAKER) 243 mg/dL Specime n slightly (test code = 631) hemolyzed HDL CHOLESTEROL (BEAKER) 36 mg/dL (test code = 976) LDL CHOLESTEROL 186 mg/dL CALCULATED (BEAKER) (test code = 633) Triglyceride Reference Range: Low Risk <150 Borderline 150-199 High Risk 200-499 Very High Risk >=500Cholesterol Reference Range: Low Risk <200 Borderline 200-239 High Risk >240HDL Cholesterol Reference Range: Low Risk >=60 High Risk <40LDL Cholesterol Reference Range: Optimal <100 Near Optimal 100-129 Borderline 130-159 High 160-189 Very High >=190PT/[id number] 11:44:00 Test Item Value Reference Range Interpretation Comments PROTIME (BEAKER) (test code = 13.8 seconds 11.7-14.7 759) INR (BEAKER) (test code = 370) 1.1 <=5.9 PARTIAL THROMBOPLASTIN TIME 36.6 seconds 22.5-36.0 H (BEAKER) (test code = 760) RECOMMENDED COUMADIN/WARFARIN INR THERAPY RANGESSTANDARD DOSE: 2.0 - 3.0 Includes: PROPHYLAXIS forvenous thrombosis, systemic embolization; TREATMENT for venous thrombosis and/or pulmonary embolus.HIGH RISK: Target INR is 2.5-3.5 for patients with mechanical heart valves.Prior to initiating heparinPrior to initiating heparinCBC W/PLT COUNT & AUTO [id number] 11:37:00 Test Item Value Reference Range Interpretation Comments WHITE BLOOD CELL COUNT (BEAKER) 5.7 K/ L 3.5-10.5 (test code = 775) RED BLOOD CELL COUNT (BEAKER) 5.12 M/ L 4.63-6.08 (test code = 761) HEMOGLOBIN (BEAKER) (test code = 15.8 GM/DL 13.7-17.5 410) HEMATOCRIT (BEAKER) (test code = 46.2 % 40.1-51.0 411) MEAN CORPUSCULAR VOLUME (BEAKER) 90.2 fL 79.0-92.2 (test code = 753) MEAN CORPUSCULAR HEMOGLOBIN 30.9 pg 25.7-32.2 (BEAKER) (test code = 751) MEAN CORPUSCULAR HEMOGLOBIN CONC 34.2 GM/DL 32.3-36.5 (BEAKER) (test code = 752) RED CELL DISTRIBUTION WIDTH 12.7 % 11.6-14.4 (BEAKER) (test code = 412) PLATELET COUNT (BEAKER) (test 232 K/CU MM 150-450 code = 756) MEAN PLATELET VOLUME (BEAKER) 9.9 fL 9.4-12.4 (test code = 754) NUCLEATED RED BLOOD CELLS 0 /100 WBC 0-0 (BEAKER) (test code = 413) NEUTROPHILS RELATIVE PERCENT 63 % (BEAKER) (test code = 429) LYMPHOCYTES RELATIVE PERCENT 30 % (BEAKER) (test code = 430) MONOCYTES RELATIVE PERCENT 7 % (BEAKER) (test code = 431) EOSINOPHILS RELATIVE PERCENT 0 % (BEAKER) (test code = 432) BASOPHILS RELATIVE PERCENT 1 % (BEAKER) (test code = 437) NEUTROPHILS ABSOLUTE COUNT 3.59 K/ L 1.78-5.38 (BEAKER) (test code = 670) LYMPHOCYTES ABSOLUTE COUNT 1.69 K/ L 1.32-3.57 (BEAKER) (test code = 414) MONOCYTES ABSOLUTE COUNT (BEAKER) 0.37 K/ L 0.30-0.82 (test code = 415) EOSINOPHILS ABSOLUTE COUNT 0.02 K/ L 0.04-0.54 L (BEAKER) (test code = 416) BASOPHILS ABSOLUTE COUNT (BEAKER) 0.05 K/ L 0.01-0.08 (test code = 417) IMMATURE GRANULOCYTES-RELATIVE 0 % 0-1 PERCENT (BEAKER) (test code = 2801) RAD, CHEST, 1 VIEW, NON [id number] 11:23:00Post-intubationReason for exam:- >NSTEMI, chest painShould this be performed at the bedside?->YesFINAL REPORT Chest one view Discussion: Heart, lungs, bones, soft tissues unremarkable. No effusion or pneumothorax. Signed: Angelo Fish Verified Date/Time: 10/26/201711:23:17 Reading Location: [address] Reading Room
[2021-11-18] MEDS ORDERED: ASPIRIN 81 MG CHEWABLE TABLET ONE (09:39)
[2021-11-18] MEDS ORDERED: NA CHLORIDE 0.9% 1,000 ML ONE (09:39)
[2021-11-18 09:41] LABS: Absolute Lymphocytes (CBC) 0.5 K/uL (0.7-4.9); Hematocrit 47.5 % (39.6-49.0); Lymphocytes % 6.5 % (15.3-44.8); MPV 7.9 fL (7.6-11.3); RBC Red Blood Cell Count 5.21 M/uL (4.33-5.43)
[2021-11-18 09:48] LABS: Protime INR 1.01
--- NOTE | 2021-11-18 10:06 | ER ---
Nurse's Notes [facility] Name: Ramirez Gould Jr Age: 61 yrs Sex: Male : 1960 Arrival Date: 11/18/2021 Time: 09:23 Bed 16 Private MD: Diagnosis: Chest pain, unspecified;Angina pectoris, unspecified;Esophagitis, unspecified Presentation: 11/18 09:29 Chief complaint: Patient states: chest pain since 0330 this morning, feels like iw pressure across his chest, got light headed and vomited once, hx of stents, took one SL nitro [employer], no relief. Coronavirus screen: At this time, the client does not indicate any symptoms associated with coronavirus-19. Ebola Screen: Patient negative for fever greater than or equal to 101.5 degrees Fahrenheit, and additional compatible Ebola Virus Disease symptoms Patient denies exposure to infectious person. Patient denies travel to an Ebola-affected area in the 21 days before illness onset. No symptoms or risks identified at this time. Initial Sepsis Screen: Does the patient meet any 2 criteria? No. Patient's initial sepsis screen is negative. Does the patient have a suspected source of infection? No. Patient's initial sepsis screen is negative. Risk Assessment: Do you want to hurt yourself or someone else? Patient reports no desire to harm self or others. Onset of symptoms was November 18, 2021. 09:29 Method Of Arrival: Ambulatory iw 09:29 Acuity: JOHN 2 iw Triage Assessment: 09:30 General: Appears in no apparent distress. uncomfortable, Behavior is cooperative, bp appropriate for age, anxious. Pain: Complains of pain in chest. EENT: No deficits noted. Neuro: No deficits noted. Cardiovascular: Reports chest pain. Respiratory: No deficits noted. GI: No signs and/or symptoms were reported involving the gastrointestinal system. : No signs and/or symptoms were reported regarding the genitourinary system. Derm: No deficits noted. Musculoskeletal: No deficits noted. Historical: - Allergies: : No Known Allergies; iw - Home Meds: :30 carvedilol 6.25 mg oral tab 1 tab 2 times per day [Active]; Plavix 75 mg Oral tab 1 tab iw once daily [Active]; atorvastatin 80 mg oral tab 1 tab once daily [Active]; nitroglycerin 0.3 mg SL subl 1 tab every 5 minutes [Active]; - PMHx: 09:30 GERD; Hypertension; Myocardial infarction; iw - PSHx: 09:30 cardiac stents; iw - Immunization history:: Client reports receiving the 2nd dose of the Covid vaccine. - Social history:: Smoking status: Patient denies any tobacco usage or history of. Screenin:30 Abuse screen: Denies threats or abuse. Denies injuries from another. Nutritional bp screening: No deficits noted. Tuberculosis screening: No symptoms or risk factors identified. Fall Risk None identified. Assessment: 09:30 General: SEE TRIAGE NOTE. bp 09:30 Pain: Pain does not radiate. Pain began 0330. bp 11:10 Reassessment: PT RETURNED FROM U/S. TRANSFER INITIATED. bp 12:27 Reassessment: PT VERONIKA WITH EMS. bp Vital Signs: 09:30 BP 117 / 87; Pulse 93; Resp 15; Temp 98.8; Pulse Ox 94% ; Weight 106.59 kg; Height 5 bp ft. 10 in. (177.80 cm); 11:11 BP 120 / 76; Pulse 76; Resp 11; Pulse Ox 95% ; bp 12:27 BP 113 / 73; Pulse 70; Resp 11; Pulse Ox 95% ; bp 09:30 Body Mass Index 33.72 (106.59 kg, 177.80 cm) bp ED Course: 09:23 Patient arrived in ED. rg4 09:26 Spike Santiago MD is Attending Physician. lulu 09:30 Triage completed. iw 09:30 telemetry monitor on. Pulse ox on. NIBP on. bp 09:30 Inserted saline lock: 20 gauge in left antecubital area, using aseptic technique. Blood jd3 collected. 09:31 Arm band placed on. iw 09:33 EKG done, by ED staff, reviewed by Spike Santiago MD. mb7 09:34 Edilberto Carr, JOSIE is Primary Nurse. bp 09:37 Patient has correct armband on for positive identification. Placed in gown. Bed in low mb7 position. Call light in reach. Side rails up X 1. Door closed. Noise minimized. Warm blanket given. 09:59 Troponin HS Sent. bp 09:59 CBC with Diff Sent. bp 09:59 Basic Metabolic Panel Sent. bp 09:59 XRAY Chest (1 view) Sent. bp 10:04 X-ray completed. Portable x-ray completed in exam room. Patient tolerated procedure bq well. 10:06 XRAY Chest (1 view) In Process Unspecified. EDMS 10:[address] Santiago with KARL Salcedo from the [facility] at the request of the patient. 10:25 CT Chest For PE Angio Sent. bp 10:29 administrative approval given by KARL Salcedo. patient has been accepted to [facility] 24t bed 2446/ Dr. Francisco has accepted the patient in transfer/ report to be called to [phone]. 10:36 CT Chest For PE Angio In Process Unspecified. EDMS 11:09 US Extremity Venous W Compression Wilmre In Process Unspecified. EDMS 12:27 No provider procedures requiring assistance completed. Patient transferred, IV remains bp in place. Patient maintains SpO2 saturation greater than 95% on room air. Administered Medications: 09:40 Drug: Aspirin Chewable Tablet 324 mg Route: PO; bp 11:44 Follow up: Response: No adverse reaction bp 09:40 Drug: NS 0.9% 1000 ml Route: IV; Rate: 125 ml/hr; Site: left antecubital; bp 12:28 Follow up: IV Status: Infusion continued upon transfer bp 10:00 Drug: Lovenox (enoxaparin) 1 mg/kg Route: Sub-Q; Site: left lower abdomen; bp 11:44 Follow up: Response: No adverse reaction bp 11:10 Drug: Pepcid (famotidine) 20 mg Route: IVP; Site: left antecubital; bp 11:44 Follow up: Response: No adverse reaction bp 11:10 Drug: morphine 2 mg Route: IVP; Site: left antecubital; bp 11:44 Follow up: Response: Pain is decreased bp 11:10 Drug: morphine 2 mg Route: IVP; Site: left antecubital; bp 11:10 Drug: Zofran (Ondansetron) 4 mg Route: IVP; Site: left antecubital; bp 11:44 Follow up: Response: No adverse reaction bp 11:43 Drug: ProTONIX (pantoprazole) 40 mg Route: IVP; Site: left antecubital; bp 12:27 Follow up: Response: No adverse reaction bp 11:43 Drug: GI Cocktail without - (Maalox Suspension 30 ml, Lidocaine Liquid 2 % 15 bp ml) Route: PO; 12:27 Follow up: Response: No adverse reaction bp Outcome: 10:06 ER care complete, transfer ordered by MD. lawson 12:27 Transferred by ground EMS to [facility]. bp 12:27 Condition: stable 12:27 Instructed on the need for transfer. 12:29 Patient left the ED. bp Signatures: Dispatcher [employer] EDMS Spike Santiago MD MD cha Quilty, Betty bq Williams, Irene, JOSIE RN Marizol Rendon rg4 Gurwinder Leiva RN RN Edilberto Garrett RN RN Diana Garcia Mary mb7 Corrections: (The following items were deleted from the chart) 09:55 09:40 BP 117 / 87; Pulse 93bpm; Resp 15bpm; Pulse Ox 94%; Temp 98.8F; bp bp 09:59 09:30 BP 117 / 87; Pulse 93bpm; Resp 15bpm; Pulse Ox 94%; Temp 98.8F; bp bp 10:05 09:59 To radiology for Chest Single View+RAD.RAD.BRZ. bp EDMS 11:12 11:11 Pulse 76bpm; Resp 11bpm; Pulse Ox 95%; bp bp
--- NOTE | 2021-11-18 10:06 | EDPHYS ---
Physician Documentation [facility] Name: Ramirez Gould Jr Age: 61 yrs Sex: Male : 1960 Arrival Date: 11/18/2021 Time: 09:23 Bed 16 Private MD: ED Physician Spike Santiago HPI: 11/18 10:00 This 61 yrs old Male presents to ER via Ambulatory with complaints of Chest lulu Pain. Historical: - Allergies: 09:30 No Known Allergies; iw - Home Meds: 09:30 carvedilol 6.25 mg oral tab 1 tab 2 times per day [Active]; Plavix 75 mg Oral tab 1 tab iw once daily [Active]; atorvastatin 80 mg oral tab 1 tab once daily [Active]; nitroglycerin 0.3 mg SL subl 1 tab every 5 minutes [Active]; - PMHx: 09:30 GERD; Hypertension; Myocardial infarction; iw - PSHx: 09:30 cardiac stents; iw - Immunization history:: Client reports receiving the 2nd dose of the Covid vaccine. - Social history:: Smoking status: Patient denies any tobacco usage or history of. ROS: 10:01 Constitutional: Negative for fever, chills, and weight loss, Eyes: Negative for injury, lulu pain, redness, and discharge, ENT: Negative for injury, pain, and discharge, Neck: Negative for injury, pain, and swelling, Respiratory: Negative for shortness of breath, cough, wheezing, and pleuritic chest pain, Abdomen/GI: Negative for abdominal pain, nausea, vomiting, diarrhea, and constipation, Back: Negative for injury and pain, : Negative for injury, bleeding, discharge, and swelling, MS/Extremity: Negative for injury and deformity, Skin: Negative for injury, rash, and discoloration, Neuro: Negative for headache, weakness, numbness, tingling, and seizure, Psych: Negative for depression, anxiety, suicide ideation, homicidal ideation, and hallucinations, Allergy/Immunology: Negative for hives, rash, and allergies, Endocrine: Negative for neck swelling, polydipsia, polyuria, polyphagia, and marked weight changes. 10:01 Cardiovascular: Positive for chest pain. Exam: 10:01 Constitutional: This is a well developed, well nourished patient who is awake, alert, lulu and in no acute distress. Head/Face: Normocephalic, atraumatic. Eyes: Pupils equal round and reactive to light, extra-ocular motions intact. Lids and lashes normal. Conjunctiva and sclera are non-icteric and not injected. Cornea within normal limits. Periorbital areas with no swelling, redness, or edema. ENT: Nares patent. No nasal discharge, no septal abnormalities noted. Tympanic membranes are normal and external auditory canals are clear. Oropharynx with no redness, swelling, or masses, exudates, or evidence of obstruction, uvula midline. Mucous membranes moist. Neck: Trachea midline, no thyromegaly or masses palpated, and no cervical lymphadenopathy. Supple, full range of motion without nuchal rigidity, or vertebral point tenderness. No Meningismus. Chest/axilla: Normal chest wall appearance and motion. Nontender with no deformity. No lesions are appreciated. Cardiovascular: Regular rate and rhythm with a normal S1 and S2. No gallops, murmurs, or rubs. Normal PMI, no JVD. No pulse deficits. Respiratory: Lungs have equal breath sounds bilaterally, clear to auscultation and percussion. No rales, rhonchi or wheezes noted. No increased work of breathing, no retractions or nasal flaring. Abdomen/GI: Soft, non-tender, with normal bowel sounds. No distension or tympany. No guarding or rebound. No evidence of tenderness throughout. Back: No spinal tenderness. No costovertebral tenderness. Full range of motion. Male : Normal genitalia with no discharge or lesions. Skin: Warm, dry with normal turgor. Normal color with no rashes, no lesions, and no evidence of cellulitis. MS/ Extremity: Pulses equal, no cyanosis. Neurovascular intact. Full, normal range of motion. Neuro: Awake and alert, GCS 15, oriented to person, place, time, and situation. Cranial nerves II-XII grossly intact. Motor strength 5/5 in all extremities. Sensory grossly intact. Cerebellar exam normal. Normal gait. Psych: Awake, alert, with orientation to person, place and time. Behavior, mood, and affect are within normal limits. Vital Signs: 09:30 BP 117 / 87; Pulse 93; Resp 15; Temp 98.8; Pulse Ox 94% ; Weight 106.59 kg; Height 5 bp ft. 10 in. (177.80 cm); 11:11 BP 120 / 76; Pulse 76; Resp 11; Pulse Ox 95% ; bp 12:27 BP 113 / 73; Pulse 70; Resp 11; Pulse Ox 95% ; bp 09:30 Body Mass Index 33.72 (106.59 kg, 177.80 cm) bp MDM: 09:26 Patient medically screened. lulu 10:02 Differential diagnosis: abnormal EKG, acute pericarditis, anxiety, Cholelithiasis lulu hiatal hernia, pancreatitis, pneumonia, pulmonary embolus, stable angina, unstable angina. HEART Score: ECG: Normal (0), Age: > 45 and < 65 years (1), Risk Factors: > or = 3 Risk factors for atherosclerotic disease (2), [Hypercholesterolemia] [Hypertension] [+ Family HX] [Obesity] Troponin: < or = 1 x Normal Limit (0). The patient was given aspirin in the Emergency Department. The patient's deep vein thrombosis risk score was calculated as follows: Total Score: 0. This patient was found to be at low risk for a deep vein thrombosis by using the Well's assessment criteria. The patient's pulmonary embolism risk score was calculated as follows: Total Score: 0-2 points. This patient was found to be at low risk for a pulmonary embolism by using the Well's assessment criteria. CHAD Risk Score: 1 - Three or more CAD risk factors, 1- Known CAD, 1 - ASA use in past 7 days, 1 - Recent [<24hrs] Severe Angina, TOTAL SCORE = 4. Data reviewed: vital signs, nurses notes, EMS record, lab test result(s), EKG, radiologic studies, CT scan. Data interpreted: hospital monitor: rate is 93 beats/min, rhythm is regular, Pulse oximetry: on room air. Test interpretation: by ED physician or midlevel provider: ECG, plain radiologic studies. 11/18 09:28 Order name: Basic Metabolic Panel; Complete Time: 10:10 lulu 11/18 09:28 Order name: CBC with Diff; Complete Time: 10:25 lulu 11/18 09:28 Order name: D-Dimer; Complete Time: 09:51 lulu 11/18 09:28 Order name: LFT's; Complete Time: 10:10 11/18 09:28 Order name: Magnesium; Complete Time: 10:10 11/18 09:28 Order name: NT PRO-BNP; Complete Time: 10:10 [facility] 11/18 09:28 Order name: PT-INR; Complete Time: 09:51 lulu 11/18 09:28 Order name: Troponin HS; Complete Time: 10:10 lulu 11/18 09:28 Order name: XRAY Chest (1 view) 11/18 09:28 Order name: SARS-COV-2 RT PCR (Document "Date of Onset" if Symptomatic) 11/18 09:28 Order name: Basic Metabolic Panel bp 11/18 09:28 Order name: CBC with Diff bp 11/18 09:28 Order name: Troponin HS bp 11/18 09:46 Order name: Manual Differential; Complete Time: 10:25 EDMS 11/18 09:28 Order name: EKG; Complete Time: 09:28 [facility] 11/18 09:28 Order name: Cardiac monitoring; Complete Time: 09:52 lulu 11/18 09:28 Order name: EKG - Nurse/Tech; Complete Time: 09:52 [facility] 11/18 09:28 Order name: IV Saline Lock; Complete Time: 09:52 lulu 11/18 09:28 Order name: EKG; Complete Time: 09:28 bp 11/18 09:51 Order name: US Extremity Venous W Compression Wilmer 11/18 09:51 Order name: CT Chest For PE Angio 11/18 09:28 Order name: Labs collected and sent; Complete Time: 09:52 lulu 11/18 09:28 Order name: O2 Per Protocol; Complete Time: 09:52 11/18 09:28 Order name: O2 Sat Monitoring; Complete Time: 09:52 lulu 11/18 09:28 Order name: Cardiac monitoring; Complete Time: 09:52 bp 11/18 09:28 Order name: EKG - Nurse/Tech; Complete Time: 09:52 bp 11/18 09:28 Order name: IV Saline Lock; Complete Time: 09:52 bp 11/18 09:28 Order name: Labs collected and sent; Complete Time: 09:52 bp 11/18 09:28 Order name: O2 Per Protocol; Complete Time: 09:52 bp 11/18 09:28 Order name: O2 Sat Monitoring; Complete Time: 09:52 bp Administered Medications: 09:40 Drug: Aspirin Chewable Tablet 324 mg Route: PO; bp 11:44 Follow up: Response: No adverse reaction bp 09:40 Drug: NS 0.9% 1000 ml Route: IV; Rate: 125 ml/hr; Site: left antecubital; bp 12:28 Follow up: IV Status: Infusion continued upon transfer bp 10:00 Drug: Lovenox (enoxaparin) 1 mg/kg Route: Sub-Q; Site: left lower abdomen; bp 11:44 Follow up: Response: No adverse reaction bp 11:10 Drug: Pepcid (famotidine) 20 mg Route: IVP; Site: left antecubital; bp 11:44 Follow up: Response: No adverse reaction bp 11:10 Drug: morphine 2 mg Route: IVP; Site: left antecubital; bp 11:44 Follow up: Response: Pain is decreased bp 11:10 Drug: morphine 2 mg Route: IVP; Site: left antecubital; bp 11:10 Drug: Zofran (Ondansetron) 4 mg Route: IVP; Site: left antecubital; bp 11:44 Follow up: Response: No adverse reaction bp 11:43 Drug: ProTONIX (pantoprazole) 40 mg Route: IVP; Site: left antecubital; bp 12:27 Follow up: Response: No adverse reaction bp 11:43 Drug: GI Cocktail without - (Maalox Suspension 30 ml, Lidocaine Liquid 2 % 15 bp ml) Route: PO; 12:27 Follow up: Response: No adverse reaction bp Disposition Summary: 11/18/21 10:06 Transfer Ordered Transfer Location: [facility] lulu Reason: Higher level of care lulu Condition: Stable luul Problem: new lulu Symptoms: have improved lulu Accepting Physician: to [facility](11/18/21 12:29) bp Diagnosis - Chest pain, unspecified lulu - Angina pectoris, unspecified lulu - Esophagitis, unspecified lulu Forms: - Medication Reconciliation Form lulu - SBAR form lulu Signatures: Dispatcher [employer] EDSpike Salomon MD MD cha Williams, Irene, RN JOSIE iw Edilberto Carr RN RN bp Corrections: (The following items were deleted from the chart) 10:05 09:28 Chest Single View+[email or web address] ordered. EDSD EDMS 11:22 10:[address] [facility] lulu lulu 12:29 11:22 [facility] lulu bp
[2021-11-18] MEDS ORDERED: ENOXAPARIN 100 MG/ML SYR SQ ONE (10:08)
[2021-11-18 10:09] LABS: Albumin 3.9 g/dL (3.4-5.0); Bilirubin Direct 0.2 mg/dL (0-0.2); Bilirubin Total 0.8 mg/dL (0.2-1.0); Potassium 3.8 mmol/L (3.5-5.1); Protein, Total 7.8 g/dL (6.4-8.2); Troponin High Sensitivity 4.9 pg/mL (<58.9)
[2021-11-18 10:16] LABS: Blood Morphology Comment NOT SEEN (NOT SEEN); Platelet Estimate ADEQ
--- NOTE | 2021-11-18 10:30 | RAD REPORT ---
EXAM DESCRIPTION: RAD - Chest Single View - 11/18/2021 10:04 am CLINICAL HISTORY: CHEST PAIN COMPARISON: <Comparisons> FINDINGS: Lines: None. Lungs: No evidence of edema or pneumonia. Pleural: No significant pleural effusions or pneumothorax. Cardiac: The heart size is within normal limits. Bones: No acute fractures. Other: IMPRESSION: No acute cardiopulmonary disease.
[2021-11-18] MEDS ORDERED: ONDANSETRON 4 MG/2 ML VIAL ONE (10:45)
[2021-11-18] MEDS ORDERED: MORPHINE 4 MG/ML SYR ONE (10:45)
[2021-11-18] MEDS ORDERED: FAMOTIDINE 20 MG/2 ML VIAL IV ONE (10:46)
--- NOTE | 2021-11-18 10:47 | RAD REPORT ---
EXAM DESCRIPTION: CT - Chest For Pe Angio - 11/18/2021 10:34 am CLINICAL HISTORY: Chest pain;Dyspnea COMPARISON: Chest Single View dated 11/18/2021; Stone Protocol dated 04/26/2019 FINDINGS: Chest Wall: No suspicious thyroid nodules or pathologic lymphadenopathy. Lungs: No acute abnormality. Pleura: No significant effusions or pneumothorax. Mediastinum/kiesha: No pathologic lymphadenopathy. Circumferential thickening in the esophagus. Pulmonary arteries/Aorta: No filling defect identified. No aortic aneurysm. Heart: No significant pericardial effusion. Normal heart size. Upper abdomen: Low-density liver lesions which are likely benign. Bones: No acute abnormality. All CT scans are performed using dose optimization technique as appropriate and may include automated exposure control or mA/KV adjustment according to patient size. IMPRESSION: Negative for pulmonary embolism. Circumferential thickening of the esophagus suggesting esophagitis.
--- NOTE | 2021-11-18 11:13 | RAD REPORT ---
EXAM DESCRIPTION: US - Extrem Venous W Compress Wilmer - 11/18/2021 11:07 am CLINICAL HISTORY: Pain COMPARISON: None. TECHNIQUE: Real-time sonographic evaluation of the bilateral lower extremity deep venous systems was performed. FINDINGS: Normal compressibility, flow augmentation, phasic flow and spontaneous flow is identified in both the left and right lower extremity deep venous systems. No intraluminal filling defects seen. IMPRESSION: No DVT in either lower extremity.
[2021-11-18] MEDS ORDERED: MAGNES/ALUMIN/SIMET 30ML UCUP ONE (11:38)
[2021-11-18] MEDS ORDERED: PANTOPRAZOLE 40 MG INJ ONE (11:38)
[2021-11-18] MEDS ORDERED: LIDOCAINE VISCOUS 2% SOLN 15 ML UDC ONE (11:39)
[2021-11-18 12:34] VITALS: TEMP 98.8
[2021-11-18 12:36] VITALS: O2SAT 95
[2021-11-18 12:37] VITALS: BP 113/73
--- NOTE | 2021-11-20 09:30 | EKG ---
Test Date: 2021-11-18 Test Time: 09:30:08 Host/Hostess Head: MEASUREMENT RESULTS: Intervals: Rate: 100 [place]: 142 QRSD: 86 QT: 326 QTc: 420 [place]: P: 67 [place]: 142 QRS: 27 T: 43 INTERPRETIVE STATEMENTS: Normal sinus rhythm Normal ECG Compared to ECG 10/26/2017 07:26:54 Sinus bradycardia no longer present Electronically Signed On 11-20-21 09:26:03 CDT by Lio Muse
== END 2021-11-18 12:29 | disposition short-term general hospital (02) ==
LOC: ER 09:22
DX: I20.9 Angina pectoris, unspecified (principal); K20.90 Esophagitis, unspecified without bleeding; I10 Essential (primary) hypertension; I25.2 Old myocardial infarction; Z95.818 Presence of other cardiac implants and grafts; Z79.01 Long term (current) use of anticoagulants; Z20.822 Contact with and (suspected) exposure to COVID-19
CPT/HCPCS: 96361; 93005; 85025; 80048; 36415; 83735; 85610; 85379; 80076; 84484; 83880; 71275; 71045; 93970; 96375; 96372; 96374; 99285; U0003; Q9967; C9113; J1650; J7030; J2405